=== PATIENT | female | born 1940 | race Caucasian/White ===

== ENCOUNTER 2017-06-04 22:07 | Inpatient (IN) ==
--- NOTE | 2017-06-04 22:25 | Emergency Department Note ---
Disposition Clinical Impression: Chest pain, Pneumonia Disposition: Transfer Short-Term Hosp Condition: Serious Referrals: Heaven Mendoza, [employer] [Primary Care Provider] - Time of Disposition: 01:34 General Adult HPI - General Stated complaint: Vomiting bladder infection Time Seen by Provider: 06/04/17 22:12 Nursing Notes Reviewed: Yes Vital Signs Reviewed: Yes - History of Present Illness HPI Narrative: Patient presents today with CC of: Chest pain, vomiting, mental status changes Patient describes issue began around several hours ago when the squad was called to the residence because of the patient having chest pain. This was at approximately 945 that they arrived. Complaining of chest pain at that time was diaphoretic and had several episodes of vomiting. He treated with DuoNeb 4 baby aspirin and Zofran medication. Is not able to give a cohesive history and just says that she feels bad. Patient has been feeling hot and cold. Also has had some cough but no sputum production. sHe apparently ate hamburger earlier this evening and according to family member started having vomiting and chest pain after that." Patient currently not having any chest pain or shortness of breath. - Related Data Home Medications Medication Instructions Recorded Confirmed Allopurinol [Zyloprim 100 MG] 100 mg PO BID 11/29/16 06/05/17 Aspirin [Lo-Dose Aspirin EC] 81 mg PO DAILY 11/29/16 06/05/17 Buspirone HCl [Buspar] 5 mg PO TID 11/29/16 06/05/17 Carvedilol [Coreg] 25 mg PO BID 11/29/16 06/05/17 Cholecalciferol (D-3) [Vitamin D] 1,000 unit PO BID 11/29/16 06/05/17 Furosemide [Lasix] 40 mg PO DAILY 11/29/16 06/05/17 GlipiZIDE [Glipizide Xl] 5 mg PO DAILY 11/29/16 06/05/17 Isosorbide MONOnitrate (24 HR) 60 mg PO DAILY 11/29/16 06/05/17 [Imdur] Nitroglycerin [Nitrostat] 0.4 mg SL DAILY PRN 11/29/16 06/05/17 Omeprazole [PriLOSEC] 20 mg PO DAILY 11/29/16 06/05/17 OxyCODONE Immed Rel [Roxicodone 10 10 mg PO TID 11/29/16 06/05/17 MG] cloNIDine HCl [CloNIDine HCl] 0.1 mg PO BID 11/29/16 06/05/17 Previous Rx's Medication Instructions Recorded Atorvastatin [Lipitor] 10 mg PO DAILY #30 tablet 12/01/16 Clopidogrel [Plavix] 75 mg PO DAILY #30 tablet 12/01/16 Allergies Allergy/AdvReac Type Severity Reaction Status Date / Time cephalexin [From Keflex] Allergy Rash Verified 06/04/17 23:41 Penicillins Allergy Rash Verified 06/04/17 23:41 ciprofloxacin [From Cipro] AdvReac See Verified 06/04/17 23:41 Comments NSAIDS (Non-Steroidal AdvReac See Verified 06/04/17 23:41 Anti-Inflamma Comments Zolpidem [From Ambien] AdvReac See Verified 06/04/17 23:41 Comments Nasal [place] Allergy Unknown See Uncoded 06/04/17 23:41 Comments Past Medical History - Past Medical History Medical history: Reports: cancer, CHF, COPD, coronary artery disease, diabetes, GERD, hyperlipidemia, hypertension, myocardial infarction, renal disease, TIA, other Surgical history: Reports: appendectomy, cancer surgery, cholecystectomy, hysterectomy, orthopedic, other Psychiatric history: Reports: anxiety, depression TENSILE TESTER history: Reports: no TENSILE TESTER history - Social History Smoking Status: Former smoker Smokeless Tobacco Status: No Alcohol use: Reports: none Drug use: Reports: none Physical Exam ROS: At least 10 systems reviewed with patient (she is a very poor historian) squad was only people available during time of exam to answer question provide history. I have reviewed initial and available nurse's notes for the patient. The patient 's medications, allergies, and medical history was reviewed. Family, Social & Surg histories were reviewed and are not relevant except as noted above in the history of present illness, or below in the respective specific section. I have reviewed and agree with all vital signs synchronously available in EMR at the time of this dictation. Times documented are the time of computer entry, are not necessarily the time the event occurred. Physical EXAM: General ~ Constitutional: Conscious & cooperative , generally healthy appearance Head: NCAT Eyes: Sclera white , conjunctiva clear , PERRL, non-icteric ENT : L Tympanic membrane normal color and landmarks R Tympanic membrane normal color and landmarks Canals are clear without significant drainage , no obstruction or vesicles , pinna and tragus non tender Nose with pink nasal mucosa, nares patent, non tender without bleeding Mouth - mucous membrane moist , pink , no lesions , no trismus Neck - no masses , supple , no cervical spinous process tenderness Pharynx - no exudate , no petechia or obvious lesions , no airway obstruction or stridor Hematologic ~ Lymphatic ~ Immunologic: Lymphadenopathy normal , no petechia , Skin color, nails and pulses unremarkable. Heart ~ Chest: Reg rate , nml Rhythm , nl S1/S2 , no MRG Lungs: Breath sounds equal , clear to auscultation bilaterally with diminished right side, no wheezing, no rales or rhonchi , no CVA tenderness Gastrointestinal ~ Abd: Soft & non tender , BS + in 4 quads , No HSM or masses , no peritoneal signs GenitoUrinary: Deferred Musculoskeletal ~ Back ~ Extremities: Warm and w/o clubbing , cyanosis , or edema. No point tenderness , good ROM of major joints Neurologic: Cranial nerves grossly intact, good muscle strength , attention good , cooperative , responds to questions but affect flat orineted to person and place Psychiatric: Calm , Insight and mood poor , Skin: No rashes , good skin turgor , cap refill 2-3 seconds , warm and dry Course Vital Signs Temperature 100.1 F H 06/04/17 22:42 Pulse Rate 80 06/04/17 22:42 Respiratory Rate 16 06/04/17 22:42 Blood Pressure 197/75 06/04/17 22:42 O2 Sat by Pulse Oximetry 84 06/04/17 22:42 Temperature 100.1 F H 06/04/17 22:42 Pulse Rate 73 06/05/17 00:50 Respiratory Rate 14 06/05/17 00:51 Blood Pressure 170/75 06/05/17 00:51 O2 Sat by Pulse Oximetry 95 06/05/17 00:51 Oxygen Delivery Oxygen Delivery Nasal Cannula Medical Decision Making - MDM Narrative Medical decision making narrative: MDM: History and physical exam is consistent with - atypical CP, pneumonia DDx included multiple etiologies for the symptoms such as - atypical CP, ACS, Pneumonia, pneumothorax, Gerd, AAA, PE XRAYS: Infiltrate right lung Critical Care: None Condition and evaluation here was discussed in detail. Labwork, and test results were reviewed with the patient chest x-ray shows infiltrate the patient does not meet sepsis criteria. I think she has a community acquired pneumonia but with complicating factor of diabetes, chest pain, altered mental status the patient should be admitted to a larger hospital. Patient was treated with antibiotics here in the emergency department and is agreeable to admission to the hospital here. I discussed case with Dr. Christopher patient will be admitted to the hospital here. She did improve significantly after being here in the department for several hours I suspect some of her altered mental status may be from some medication she is on. - Lab Data Result diagrams: 06/04/17 23:10 06/04/17 23:10 Lab Results 06/04/17 06/04/17 06/04/17 Range/Units 23:10 23:10 23:10 WBC 7.6 (4.3-11.1) K/mcL RBC 3.82 (3.82-4.97) M/mcL Hgb 12.4 (11.5-15.4) g/dL Hct 37.6 (35.3-44.9) % MCV 98.4 (83.0-100.0) fL MCH 32.5 (28.0-33.3) pg MCHC 33.0 (31.6-35.5) g/dL RDW 14.1 (11.5-14.5) % Plt Count 95 L (140-400) K/mcL MPV 12.2 (9.4-12.4) fL Immature Gran % 0.5 (0-4) % Seg Neutrophils % 87.8 % Lymphocytes % 6.2 % Monocytes % 4.9 % Eosinophils % 0.3 % Basophils % 0.3 % Neutrophils # 6.7 (1.6-8.9) K/mcL Lymphocytes # 0.5 L (0.6-4.6) K/mcL Monocytes # 0.4 (0.0-1.3) K/mcL Eosinophils # 0.0 (0.0-0.6) K/mcL Basophils # 0.0 (0.0-0.2) K/mcL PT (9.4-12.1) Seconds INR APTT 27.8 (26.0-36.0) Seconds ABG pH (7.32-7.45) pH Units ABG pCO2 (35-45) mmHg ABG pO2 (85-104) mmHg ABG HCO3 (21-27) mEq/L ABG Total CO2 (20-26) mEq/L ABG O2 Saturation (95-98) % ABG Base Excess (-2 to 3) mEq/L Sodium (136-145) mEq/L Potassium (3.5-5.1) mEq/L Chloride (98-107) mEq/L Carbon Dioxide (23-29) mEq/L BUN (8-23) mg/dL Creatinine (0.60-1.20) mg/dL Est GFR ( Amer) (> 60) Est GFR (Non-Af Amer) (> 60) BUN/Creatinine Ratio (6-26) Glucose (70-105) mg/dL Calculated Osmolality (280-300) Lactic Acid (0.5-2.2) mmol/L Calcium (8.6-10.3) mg/dL Total Bilirubin (0.3-1.0) mg/dL AST (13-39) Units/L ALT (7-52) Units/L Alkaline Phosphatase (34-104) Units/L Troponin I (< 0.04) ng/mL Serum Total Protein (6.4-8.9) g/dL Albumin (3.5-5.7) g/dL Globulin (2.4-3.5) g/dL Albumin/Globulin Ratio (1.1-2.2) Lipase (11-82) Units/L Urine Color (Yellow) Urine Clarity (Clear) Urine pH (5.0-8.0) pH Units Ur Specific [place] (1.010-1.025) Urine Protein (Neg-Trace) mg/dL Urine Glucose (UA) (Normal) mg/dL Urine Ketones (Negative) mg/dL Urine Blood (Negative) Urine Nitrite (Negative) Urine Bilirubin (Negative) Urine Urobilinogen (Normal) mg/dL Ur Leukocyte Esterase (Negative) Amorphous Sediment (Few) Ur Culture Indicated? (NO) Ethyl Alcohol < 10 (Less than 10) mg/dL 06/04/17 06/04/17 06/04/17 Range/Units 23:10 23:10 23:10 WBC (4.3-11.1) K/mcL RBC (3.82-4.97) M/mcL Hgb (11.5-15.4) g/dL Hct (35.3-44.9) % MCV (83.0-100.0) fL MCH (28.0-33.3) pg MCHC (31.6-35.5) g/dL RDW (11.5-14.5) % Plt Count (140-400) K/mcL MPV (9.4-12.4) fL Immature Gran % (0-4) % Seg Neutrophils % % Lymphocytes % % Monocytes % % Eosinophils % % Basophils % % Neutrophils # (1.6-8.9) K/mcL Lymphocytes # (0.6-4.6) K/mcL Monocytes # (0.0-1.3) K/mcL Eosinophils # (0.0-0.6) K/mcL Basophils # (0.0-0.2) K/mcL PT 14.2 H (9.4-12.1) Seconds INR 1.3 APTT (26.0-36.0) Seconds ABG pH (7.32-7.45) pH Units ABG pCO2 (35-45) mmHg ABG pO2 (85-104) mmHg ABG HCO3 (21-27) mEq/L ABG Total CO2 (20-26) mEq/L ABG O2 Saturation (95-98) % ABG Base Excess (-2 to 3) mEq/L Sodium (136-145) mEq/L Potassium (3.5-5.1) mEq/L Chloride (98-107) mEq/L Carbon Dioxide (23-29) mEq/L BUN (8-23) mg/dL Creatinine (0.60-1.20) mg/dL Est GFR ( Amer) (> 60) Est GFR (Non-Af Amer) (> 60) BUN/Creatinine Ratio (6-26) Glucose (70-105) mg/dL Calculated Osmolality (280-300) Lactic Acid 1.6 (0.5-2.2) mmol/L Calcium (8.6-10.3) mg/dL Total Bilirubin (0.3-1.0) mg/dL AST (13-39) Units/L ALT (7-52) Units/L Alkaline Phosphatase (34-104) Units/L Troponin I < 0.03 (< 0.04) ng/mL Serum Total Protein (6.4-8.9) g/dL Albumin (3.5-5.7) g/dL Globulin (2.4-3.5) g/dL Albumin/Globulin Ratio (1.1-2.2) Lipase 13 (11-82) Units/L Urine Color (Yellow) Urine Clarity (Clear) Urine pH (5.0-8.0) pH Units Ur Specific [place] (1.010-1.025) Urine Protein (Neg-Trace) mg/dL Urine Glucose (UA) (Normal) mg/dL Urine Ketones (Negative) mg/dL Urine Blood (Negative) Urine Nitrite (Negative) Urine Bilirubin (Negative) Urine Urobilinogen (Normal) mg/dL Ur Leukocyte Esterase (Negative) Amorphous Sediment (Few) Ur Culture Indicated? (NO) Ethyl Alcohol (Less than 10) mg/dL 06/04/17 06/04/17 06/04/17 Range/Units 23:10 23:24 23:55 WBC (4.3-11.1) K/mcL RBC (3.82-4.97) M/mcL Hgb (11.5-15.4) g/dL Hct (35.3-44.9) % MCV (83.0-100.0) fL MCH (28.0-33.3) pg MCHC (31.6-35.5) g/dL RDW (11.5-14.5) % Plt Count (140-400) K/mcL MPV (9.4-12.4) fL Immature Gran % (0-4) % Seg Neutrophils % % Lymphocytes % % Monocytes % % Eosinophils % % Basophils % % Neutrophils # (1.6-8.9) K/mcL Lymphocytes # (0.6-4.6) K/mcL Monocytes # (0.0-1.3) K/mcL Eosinophils # (0.0-0.6) K/mcL Basophils # (0.0-0.2) K/mcL PT (9.4-12.1) Seconds INR APTT (26.0-36.0) Seconds ABG pH 7.42 (7.32-7.45) pH Units ABG pCO2 47 H (35-45) mmHg ABG pO2 76 L (85-104) mmHg ABG HCO3 31 H (21-27) mEq/L ABG Total CO2 32 H (20-26) mEq/L ABG O2 Saturation 95 (95-98) % ABG Base Excess 5 H (-2 to 3) mEq/L Sodium 133 L (136-145) mEq/L Potassium 4.0 (3.5-5.1) mEq/L Chloride 94 L (98-107) mEq/L Carbon Dioxide 30 H (23-29) mEq/L BUN 25 H (8-23) mg/dL Creatinine 1.36 H (0.60-1.20) mg/dL Est GFR ( Amer) 46 L (> 60) Est GFR (Non-Af Amer) 38 L (> 60) BUN/Creatinine Ratio 18 (6-26) Glucose 201 H (70-105) mg/dL Calculated Osmolality 286 (280-300) Lactic Acid (0.5-2.2) mmol/L Calcium 9.4 (8.6-10.3) mg/dL Total Bilirubin 1.5 H (0.3-1.0) mg/dL AST 16 (13-39) Units/L ALT 11 (7-52) Units/L Alkaline Phosphatase 58 (34-104) Units/L Troponin I (< 0.04) ng/mL Serum Total Protein 6.4 (6.4-8.9) g/dL Albumin 4.0 (3.5-5.7) g/dL Globulin 2.4 (2.4-3.5) g/dL Albumin/Globulin Ratio 1.7 (1.1-2.2) Lipase (11-82) Units/L Urine Color Yellow (Yellow) Urine Clarity Slightly Cloudy A (Clear) Urine pH 5.5 (5.0-8.0) pH Units Ur Specific [place] >= 1.030 H (1.010-1.025) Urine Protein 100 H (Neg-Trace) mg/dL Urine Glucose (UA) Normal (Normal) mg/dL Urine Ketones Negative (Negative) mg/dL Urine Blood Negative (Negative) Urine Nitrite Negative (Negative) Urine Bilirubin Negative (Negative) Urine Urobilinogen Normal (Normal) mg/dL Ur Leukocyte Esterase Negative (Negative) Amorphous Sediment Few (Few) Ur Culture Indicated? NO (NO) Ethyl Alcohol (Less than 10) mg/dL - EKG Data EKG #1 EKG results narrative: EKG shows ectopic atrial rhythm. Ventricular rate 77. NC interval 149. QRS duration 105. QTc 439. T-wave flattening in lead aVL otherwise no acute injury pattern is noted.
[2017-06-04 23:20] LABS: Basophils % 0.3 %; Eosinophils % 0.3 %; Hematocrit 37.6 % (35.3-44.9); Hemoglobin 12.4 g/dL (11.5-15.4); Immature Granulocytes % 0.5 % (0-4); Lymphocytes # 0.5 K/mcL (0.6-4.6); Lymphocytes % 6.2 %; Mean Corpuscular Hemoglobin 32.5 pg (28.0-33.3); Mean Corpuscular Volume 98.4 fL (83.0-100.0); Mean Platelet Volume 12.2 fL (9.4-12.4); Monocytes # 0.4 K/mcL (0.0-1.3); Monocytes % 4.9 %; Neutrophils # 6.7 K/mcL (1.6-8.9); Red Blood Count 3.82 M/mcL (3.82-4.97); Red Cell Distribution Width 14.1 % (11.5-14.5); Segmented Neutrophils % 87.8 %
[2017-06-04 23:22] LABS: INR 1.3; Prothrombin Time 14.2 Seconds (9.4-12.1)
[2017-06-04 23:23] LABS: Platelet Count 95 K/mcL (140-400)
[2017-06-04 23:35] LABS: Troponin I < 0.03 ng/mL (< 0.04)
[2017-06-04 23:36] LABS: Albumin/Globulin Ratio 1.7 (1.1-2.2); Bilirubin,Total 1.5 mg/dL (0.3-1.0); Calcium 9.4 mg/dL (8.6-10.3); Globulin 2.4 g/dL (2.4-3.5); Lipase 13 Units/L (11-82); Total Protein 6.4 g/dL (6.4-8.9)
[2017-06-04 23:42] LABS: ABG Base Excess 5 mEq/L (-2 to 3); ABG HCO3 31 mEq/L (21-27); ABG Oxygen Saturation 95 % (95-98); ABG PCO2 47 mmHg (35-45); ABG PH 7.42 pH Units (7.32-7.45); ABG PO2 76 mmHg (85-104); ABG TCO2 32 mEq/L (20-26)
[2017-06-04 23:59] LABS: Bilirubin,Urine Negative (Negative); Blood,Urine Negative (Negative); Clarity,Urine Slightly Cloudy (Clear); Glucose,Urine (UA) Normal (Normal); Ketones,Urine Negative (Negative); Leukocyte Esterase,Urine Negative (Negative); Nitrite,Urine Negative (Negative); PH,Urine 5.5 pH Units (5.0-8.0); Protein,Urine 100 mg/dL (Neg-Trace); Specific Gravity,Urine >= 1.030 (1.010-1.025); Urobilinogen,Urine Normal (Normal)
[2017-06-05] LABS: Color,Urine Yellow (Yellow)
[2017-06-05 00:01] LABS: Amorphous Sediment,Urine Few (Few)
[2017-06-05] MEDS ORDERED: Ipratropium/Albuterol Neb 3 ML IH ONE (00:06)
[2017-06-05] MEDS ORDERED: Doxycycline 100 MG in 0.9 % Sodium Chloride Mini Bag 100 ML IVPB ONE (01:35)
[2017-06-05] MEDS ORDERED: Doxycycline 100 MG in 0.9 % Sodium Chloride Mini Bag 100 ML IVPB SCH (02:00)
[2017-06-05] MEDS ORDERED: Naloxone 0.4 MG/ML INJ IVP PRN (03:11)
[2017-06-05] MEDS ORDERED: Nitroglycerin 0.4 MG TAB.SUBL SL PRN (03:11)
[2017-06-05 04:08] LABS: Basophils % 0.4 %; Eosinophils % 0.6 %; Hematocrit 34.6 % (35.3-44.9); Hemoglobin 11.4 g/dL (11.5-15.4); Immature Granulocytes % 0.4 % (0-4); Lymphocytes # 0.7 K/mcL (0.6-4.6); Lymphocytes % 12.5 %; Mean Corpuscular HGB Conc 32.9 g/dL (31.6-35.5); Mean Corpuscular Hemoglobin 32.4 pg (28.0-33.3); Mean Corpuscular Volume 98.3 fL (83.0-100.0); Mean Platelet Volume 11.8 fL (9.4-12.4); Monocytes # 0.4 K/mcL (0.0-1.3); Monocytes % 7.2 %; Neutrophils # 4.2 K/mcL (1.6-8.9); Red Blood Count 3.52 M/mcL (3.82-4.97); Red Cell Distribution Width 14.1 % (11.5-14.5); Segmented Neutrophils % 78.9 %
[2017-06-05] MEDS: 0.9 % Sodium Chloride 1,000 ML IVC SCH ×2 (04:10→15:07)
[2017-06-05 04:11] LABS: Platelet Count 83 K/mcL (140-400)
[2017-06-05 04:20] LABS: Calcium 9.1 mg/dL (8.6-10.3); Potassium 3.9 mEq/L (3.5-5.1)
[2017-06-05] MEDS: *HR* GlipiZIDE XL (24 HR) 2.5 MG TABLET PO SCH (08:55)
[2017-06-05] MEDS: Furosemide 40 MG TABLET PO SCH (08:56)
[2017-06-05] MEDS: *HR* OxyCODONE Immed Rel 5 MG TABLET PO SCH ×3 (08:56→21:04)
[2017-06-05] MEDS: Aspirin Enteric Coated 81 MG Tablet PO SCH (08:56)
[2017-06-05] MEDS: cloNIDine HCl 0.1 MG TABLET PO SCH ×2 (08:56→21:04)
[2017-06-05] MEDS: Cholecalciferol (D-3) 1,000 UNIT TABLET PO SCH ×2 (08:56→21:04)
[2017-06-05] MEDS: Isosorbide MONOnitrate (24 HR) 60 MG TAB.ER.24H PO SCH (08:56)
--- NOTE | 2017-06-05 11:44 | Internal Med History&Physical ---
Date of Encounter: 06/06/17 Time of Encounter: 11:34 Assessment and Plan (1) Right lower lobe pneumonia Current visit: Yes Status: Acute Patient is admitted to the hospital with chest x-ray consistent with right lower lobe infiltrate/pneumonia, history of hypoxia and confusion. Due to her multiple allergies she is placed on doxycycline in the ER. She is on IV fluids. Clinically she is improving and symptomatically she is improving. For now she will remain on oxygen, increase her activities as tolerated, continue with the IV doxycycline. Qualifiers: Pneumonia type: due to unspecified organism Qualified Code(s): J18.1 - Lobar pneumonia, unspecified organism (2) Chronic kidney disease (CKD) Current visit: Yes Status: Chronic History of chronic kidney disease and followed by Dr. Bobo. Actually her creatinine has shown improvement over the past few months. I will have to verify her medications closely with the pharmacy as there is discrepancy in the records Qualifiers: Chronic kidney disease stage: stage 3 (moderate) Qualified Code(s): N18.3 - Chronic kidney disease, stage 3 (moderate) (3) COPD (chronic obstructive pulmonary disease) Current visit: Yes Status: Chronic History of previous tobacco use and quit over 20 years ago. Currently requiring oxygen. Does not use oxygen at home. I will need to verify her COPD medications with the pharmacy as there are discrepancies in the ER records. Qualifiers: COPD type: COPD with acute lower respiratory infection Qualified Code(s): J44.0 - Chronic obstructive pulmonary disease with acute lower respiratory infection (4) Diabetes mellitus Current visit: Yes Status: Chronic History of diabetes. Her last glycohemoglobin was 8% but it was many months ago. Her sugars are reasonably controlled while in the hospital. We will check a glycohemoglobin for long-term control. Continue her glipizide for now. Qualifiers: Diabetes mellitus type: type 2 Diabetes mellitus jail insulin use: without food supervisor use Diabetes mellitus complication status: with circulatory complication Diabetes mellitus complication detail: with other circulatory complications Qualified Code(s): E11.59 - Type 2 diabetes mellitus with other circulatory complications (5) Chronic low back pain Current visit: Yes Status: Chronic History chronic low back pain, history of lumbar stenosis and chronically takes oxycodone. No radicular symptoms or signs noted today. We will continue the same medication Qualifiers: Back pain laterality: bilateral Sciatica presence: without sciatica Qualified Code(s): M54.5 - Low back pain; G89.29 - Other chronic pain; G89.29 - Other chronic pain (6) Bilateral carotid artery disease Current visit: Yes Status: Acute Known carotid artery disease bilaterally, has bruits bilaterally, and is followed by . In the past she had some type of CVA or TIA but states she has no residual symptoms. She has dopplers on a regular basis. No acute focal neurological deficit physically. (7) Coronary artery disease Current visit: No Status: Chronic Known coronary artery disease and total of 4 stents placed. No angina currently. No signs of CHF. Serial troponins negative. We will continue her current medications. Qualifiers: Coronary Disease-Associated Artery/Lesion type: [place] artery [place] vs. transplanted heart: [place] heart Associated angina: without angina Qualified Code(s): I25.10 - Atherosclerotic heart disease of [place] coronary artery without angina pectoris (8) Essential hypertension Current visit: Yes Status: Chronic History of chronic hypertension. I will need to verify her medications at the pharmacy. Currently her blood pressure is well controlled. (9) Chest pain Current visit: Yes Status: Acute Reportedly had chest pain on admission, but serial troponins are negative. No angina currently. EKG is stable. No signs of an FL. Currently she is on a stationary equipment mechanic Qualifiers: Chest pain type: other chest pain Qualified Code(s): R07.89 - Other chest pain; R07.8 - Other chest pain (10) Thrombocytopenia Current visit: Yes Status: Acute History chronic thrombocytopenia over the past several months, today is worse. Doubt she has sepsis or DIC. Follow-up platelet count ordered for tomorrow. No signs of active bleeding. We will just follow at the present time (11) DVT prophylaxis Current visit: Yes Status: Acute Due to her multiple risk factors we will start Lovenox for DVT prophylaxis. May need to reconsider based on what her platelet count does. Internal Medicine - H&P: HPI Chief complaint: "Not sure why I am here, they said I had nausea" Admitted From: Emergency Dept Plans for Post Hospital Care: Home History of present illness: Ms. Rubin is a 76 year old female with known history of chronic kidney disease, type 2 diabetes, COPD, hypertension, coronary artery disease was admitted from the emergency room having presented there with chest pain, nausea and vomiting and confusion. Patient is not sure of the exact history prior to coming to the hospital. She said she was sick for 2 or 3 days with "nausea on my stomach", sweating and having chest pain. She lives with her son Ovidio. He is a one who called the [facility] [employer]. She does recall that someone from [facility] dropped off her medication reported that patient was "acting funny". She remembers riding in the squad and being in the ER remembering the ER physician. She does not know anything much about her diagnosis, what was done, etc. She knew that she had vomiting and was confused. Now she states that she is feeling better. She know she came in the hospital last night. She knows her birthday is [birth year] but it did take her long time to figure out what today's date is based on that. She knows the names of her specialists including Dr. Bobo, Dr. Simmons, Dr. Gomez. She previously was in hospice but she is not sure why, she says she got better and does not need them any longer. She said she was recently placed on Macrodantin and she thinks that may have made her ill. Currently she is denying any chest pain, palpitations, shortness of breath, GI or symptoms. The nurse reported that the patient became hypoxic walking about 10 feet to the bathroom with saturation down to 84% on room air. With oxygen at 2 L per nasal cannula she is back up to 93-97%. In the ER she was found to be hypoxic, confused and had infiltrate on chest x- ray in the right lower lobe area and presumed that she had pneumonia and required admission. Past Med Surg Social Fam HX - Past Medical History Medical history: arthritis, asthma, cancer (Uterine cancer), CHF, COPD, coronary artery disease (4 stents total placed/2011 and 2017), diabetes, GERD, hyperlipidemia, hypertension, myocardial infarction, renal disease, TIA (She said she had a stroke in 2003 but does not recall what problems she had nor any residual), other Psychiatric history: anxiety, depression - Past Surgical History Surgical History: appendectomy, cancer surgery (Hysterectomy for endometrial cancer), cholecystectomy, hysterectomy, orthopedic, other - Social History Smoking Status: Former smoker (Smoked one pack per day for 40 years and quit in 1994) Smokeless Tobacco Status: No Alcohol use: none Drug use: none - Family History Father Living Status: Hx Family Cardiac Disorders: Yes (Heart disease) Mother Living Status: Cause of : during childbirth Brother Hx Family Endocrine Disorder: Yes (Diabetes) Sister Hx Family Endocrine Disorder: Yes (Diabetes) Internal Medicine - H&P: Meds Allopurinol [Zyloprim 100 MG] 100 mg PO BID 11/29/16 [History] Aspirin [Lo-Dose Aspirin EC] 81 mg PO DAILY 11/29/16 [History] Carvedilol [Coreg] 25 mg PO BID 11/29/16 [History] Cholecalciferol (D-3) [Vitamin D] 1,000 unit PO BID 11/29/16 [History] GlipiZIDE [Glipizide Xl] 10 mg PO DAILY 11/29/16 [History] Isosorbide MONOnitrate (24 HR) [Imdur] 60 mg PO DAILY 11/29/16 [History] Nitroglycerin [Nitrostat] 0.4 mg SL DAILY PRN 11/29/16 [History] Omeprazole [PriLOSEC] 20 mg PO DAILY 11/29/16 [History] OxyCODONE Immed Rel [Roxicodone 10 MG] 10 mg PO TID 11/29/16 [History] cloNIDine HCl [CloNIDine HCl] 0.1 mg PO TID 11/29/16 [History] Atorvastatin [Lipitor] 40 mg PO HS 06/06/17 [History] Potassium Chloride [K-Tab ER] 20 meq PO DAILY 06/06/17 [History] hydroCHLOROthiazide [Hydrochlorothiazide] 25 mg PO DAILY 06/06/17 [History] 3 Allergy/AdvReac Type Severity Reaction Status Date / Time cephalexin [From Keflex] Allergy Rash Verified 06/04/17 23:41 Penicillins Allergy Rash Verified 06/04/17 23:41 ciprofloxacin [From Cipro] AdvReac See Verified 06/04/17 23:41 Comments NSAIDS (Non-Steroidal AdvReac See Verified 06/04/17 23:41 Anti-Inflamma Comments Zolpidem [From Ambien] AdvReac See Verified 06/04/17 23:41 Comments Nasal [place] Allergy Unknown See Uncoded 06/04/17 23:41 Comments - Constitutional Constitutional: anorexia, excessive sweating, no chills, no fever(s), no falls, no night sweats - EENT Eyes: no change in vision Ears: no ear discharge, no ear pain Nose, mouth and throat: no dry mouth, no neck pain, no sore throat - Breasts Breasts: no mass, no pain - Cardiovascular Cardiovascular ROS IM: chest pain, no dyspnea, no irregular heart rhythm, no palpitations, no syncope - Respiratory Respiratory: no cough, no dyspnea, no hemoptysis, no wheezing, no pain on inspiration - Gastrointestinal Gastrointestinal: nausea, vomiting, no change in bowel habits, no constipation, no diarrhea - Genitourinary Genitourinary: no dysuria, no hematuria, no urinary frequency Menstruation: post hysterectomy - Musculoskeletal Musculoskeletal ROS IM: no arthralgias, no joint swelling, no muscle weakness - Integumentary Integumentary IM: no rash, no jaundice - Neurological Neurological ROS: memory loss (She states she does not recall much about the past 2-3 days), no frequent falls, no headache(s), no weakness - Psychiatric Psychiatric: confusion (She states she does not recall much about the prior 2 or 3 days) - Endocrine Endocrine IM: excessive sweating (She says she has been sweating a lot today.), no fatigue - Hematologic/Lymphatic Hematologic/Lymphatic: no easy bruising, no lymphadenopathy - Allergic/Immunologic Allergic/Immunologic: no uticaria, no wheezing - Constitutional Vitals: Temp Pulse Resp BP Pulse Ox 98.3 F 61 14 172/65 99 06/05/17 07:11 06/05/17 07:11 06/05/17 07:11 06/05/17 07:11 06/05/17 07:11 General appearance: Present: A&O X 3, no acute distress, obese. Absent: answers questions appropriately Exam: Some things she is uncertain of. But for the most part socially and conversationally she is very clear and lucid today - Head Head exam: Present: atraumatic, normal inspection - Eye Eye exam: Present: EOMI, PERRL. Absent: scleral icterus Pupils: Present: PERRL - ENT ENT exam: Present: normal external ear exam, TM's normal bilaterally - Neck Neck exam general surgery: Absent: lymphadenopathy, tenderness, nuchal rigidity , thyromegaly Additional comments: Faint mid to low pitched bruits are noted bilaterally. No JVD - Respiratory Respiratory exam: Present: decreased breath sounds (Diminished breath sounds throughout. Particularly the right base. Faint atelectatic-type crackles at the bases). Absent: rales, respiratory distress, stridor, wheezes, tachypnea - Cardiovascular Cardiovascular exam: Present: RRR, +S1, +S2, systolic murmur (2/6 systolic murmur heard best at the left sternal border) - GI/Abdominal GI/Abdominal exam: Present: soft. Absent: hepatomegaly, tenderness Additional comments: Moderate obesity limits her examination - Extremities Exam Extremities exam: Absent: calf tenderness, pedal edema, tenderness Additional comments: Good dorsalis pedis pulses. No pedal edema - Back Exam Additional comments: Complained of lumbar and low back pain bilaterally but not impressive on examination - Neurological Exam Neurological exam: Present: alert, CN II-XII intact, oriented X3, no focal deficits. Absent: facial droop, speech deficit - Psychiatric Psychiatric exam: Present: normal affect, normal mood Internal Med - H&P Results - Labs CBC & Chem 7: 06/06/17 04:33 06/06/17 04:33 Labs: Short CBC 06/05/17 Range/Units 03:50 WBC 5.3 (4.3-11.1) K/mcL Hgb 11.4 L (11.5-15.4) g/dL Hct 34.6 L (35.3-44.9) % Plt Count 83 L (140-400) K/mcL Neutrophils # 4.2 (1.6-8.9) K/mcL BMP 06/05/17 03:50 Sodium 134 L Potassium 3.9 Chloride 97 L Carbon Dioxide 30 H BUN 26 H Creatinine 1.32 H Glucose 149 H Calcium 9.1 Cardiac Enzymes 06/05/17 06/05/17 Range/Units 03:50 09:14 Troponin I < 0.03 < 0.03 (< 0.04) ng/mL Labs have been reviewed. Serial troponins are negative. Minimal anemia. Thrombocytopenia is noted. She has had relatively low platelet counts for several months, but not quite this low. Mild hyponatremia. Creatinine elevated in history of chronic kidney disease. This is relatively stable for her. - EKG Data EKG comments: EKG shows normal sinus rhythm. Left anterior fascicular hemiblock. No ischemic changes noted. I do not readily have available old EKGs for comparison. This has not been read by traffic inspector yet - Impressions ITS Impressions Chest X-Ray 06/05/17 04:00 IMPRESSION: 1. Decreased right basilar airspace opacity, possibly improvement in atelectasis, pneumonia, or aspiration. 2. Minimal left basilar atelectasis. 3. Pulmonary vascular congestion and/or chronic interstitial change. D/ / Sujit Glover MD / Sujit Glover MD Interpreting Provider: Sujit Glover MD - VTE Documentation of Mechanical Device: Intermittent pneumatic compression device
[2017-06-05] MEDS: Doxycycline 100 MG in 0.9 % Sodium Chloride Mini Bag 100 ML IVPB SCH (17:22)
[2017-06-06 04:41] LABS: Basophils % 0.4 %; Eosinophils # 0.2 K/mcL (0.0-0.6); Eosinophils % 3.7 %; Hematocrit 32.7 % (35.3-44.9); Hemoglobin 10.6 g/dL (11.5-15.4); Immature Granulocytes % 0.2 % (0-4); Lymphocytes # 1.3 K/mcL (0.6-4.6); Lymphocytes % 26.6 %; Mean Corpuscular HGB Conc 32.4 g/dL (31.6-35.5); Mean Corpuscular Hemoglobin 32.3 pg (28.0-33.3); Mean Corpuscular Volume 99.7 fL (83.0-100.0); Mean Platelet Volume 11.8 fL (9.4-12.4); Monocytes # 0.6 K/mcL (0.0-1.3); Monocytes % 12.9 %; Neutrophils # 2.7 K/mcL (1.6-8.9); Platelet Count 81 K/mcL (140-400); Red Blood Count 3.28 M/mcL (3.82-4.97); Red Cell Distribution Width 14.5 % (11.5-14.5); Segmented Neutrophils % 56.2 %
[2017-06-06 04:59] LABS: Calcium 8.6 mg/dL (8.6-10.3); Potassium 3.5 mEq/L (3.5-5.1)
[2017-06-06] MEDS: Doxycycline 100 MG in 0.9 % Sodium Chloride Mini Bag 100 ML IVPB SCH ×2 (05:05→18:24)
[2017-06-06] MEDS: cloNIDine HCl 0.1 MG TABLET PO SCH ×2 (05:08→20:53)
[2017-06-06] MEDS: Isosorbide MONOnitrate (24 HR) 60 MG TAB.ER.24H PO SCH (05:08)
[2017-06-06] MEDS ORDERED: *HR* Enoxaparin 40 MG/0.4 ML SYRINGE SQ SCH (06:00)
--- NOTE | 2017-06-06 07:48 | Internal Med Progress Note ---
Date of Encounter: 06/06/17 Time of Encounter: 07:43 - Assessment and plan (1) Right lower lobe pneumonia Current Visit: Yes Status: Acute Assessment and plan: Right lower lobe pneumonia. Currently taking doxycycline intravenously. She is now alert and appropriate and symptomatically improving. Today she has very subtle but present expiratory wheezing. We will add nebulizer treatment. We will verify her home medications that she states she has a nebulizer at home as well. Qualifiers: Pneumonia type: due to unspecified organism Qualified Code(s): J18.1 - Lobar pneumonia, unspecified organism (2) Chronic kidney disease (CKD) Current Visit: Yes Status: Chronic Assessment and plan: History chronic kidney disease, creatinine a bit worse since admission but at her baseline as an outpatient. We will monitor. Qualifiers: Chronic kidney disease stage: stage 3 (moderate) Qualified Code(s): N18.3 - Chronic kidney disease, stage 3 (moderate) (3) COPD (chronic obstructive pulmonary disease) Current Visit: Yes Status: Chronic Assessment and plan: History of COPD. Today she has some wheezing. We will add nebulizer treatments. Will verify her home meds. Qualifiers: COPD type: COPD with acute lower respiratory infection Qualified Code(s): J44.0 - Chronic obstructive pulmonary disease with acute lower respiratory infection (4) Diabetes mellitus Current Visit: Yes Status: Chronic Assessment and plan: Has a history of diabetes mellitus. Her glycohemoglobin is pending to check her long-range control. Sugars are reasonably controlled during this hospitalization. Qualifiers: Diabetes mellitus type: type 2 Diabetes mellitus half-way insulin use: without termite control technician use Diabetes mellitus complication status: with circulatory complication Diabetes mellitus complication detail: with other circulatory complications Qualified Code(s): E11.59 - Type 2 diabetes mellitus with other circulatory complications (5) Chronic low back pain Current Visit: Yes Status: Chronic Qualifiers: Back pain laterality: bilateral Sciatica presence: without sciatica Qualified Code(s): M54.5 - Low back pain; G89.29 - Other chronic pain; G89.29 - Other chronic pain (6) Bilateral carotid artery disease Current Visit: Yes Status: Acute (7) Coronary artery disease Current Visit: No Status: Chronic Assessment and plan: no signs of angina or CHF. Qualifiers: Coronary Disease-Associated Artery/Lesion type: [place] artery [place] vs. transplanted heart: [place] heart Associated angina: without angina Qualified Code(s): I25.10 - Atherosclerotic heart disease of [place] coronary artery without angina pectoris (8) Essential hypertension Current Visit: Yes Status: Chronic Assessment and plan: Through the night her blood pressure escalated to 190s systolic. It is better currently. We will verify her home medication list with the pharmacy and adjust accordingly (9) Chest pain Current Visit: Yes Status: Acute Assessment and plan: No angina. Serial troponins are negative. She can come off the monitor. Qualifiers: Chest pain type: other chest pain Qualified Code(s): R07.89 - Other chest pain; R07.8 - Other chest pain (10) Thrombocytopenia Current Visit: Yes Status: Acute Assessment and plan: Her thrombocytopenia is a bit worse today. She has had relatively low platelets prior to hospitalization. Lovenox was started yesterday, it will be discontinued. We will continue to monitor. (11) DVT prophylaxis Current Visit: Yes Status: Acute Assessment and plan: Her Lovenox will be discontinued because of low platelet count. It was low during admission. She will be on early ambulation, elastic stockings, and pneumatic compression devices - Subjective Interval history: Patient states that she is feeling better. No more confusion. She still is requiring oxygen. She denies any cardiac symptoms. Denies any dyspnea or significant cough. She denies any GI or symptoms. She feels stronger. Nurses report that she is getting more independent in the room. Still requires oxygen. Through the night her blood pressure elevated to the 190s systolic and her morning medications were given earlier than scheduled and blood pressure now and the 170s systolic. Patient does not know her medications. There is a discrepancy between home medication list and hospital list. We will check with pharmacy to verify her usual meds and adjust accordingly - Constitutional Vitals: Temp Pulse Resp BP Pulse Ox 98.1 F 59 16 179/54 96 06/06/17 07:27 06/06/17 07:27 06/06/17 07:27 06/06/17 07:27 06/06/17 07:27 General appearance: Present: A&O X 3, no acute distress, obese, answers questions appropriately - Respiratory Additional comments: Decreased breath sounds throughout, markedly diminished breath sounds in the right base. End expiratory wheeze is heard particularly anteriorly - Cardiovascular Cardiovascular exam: Present: RRR, +S1, +S2, systolic murmur (26 systolic murmur) - GI/Abdominal GI/Abdominal exam: Present: soft. Absent: mass, tenderness - Extremities Exam Extremities exam: Absent: calf tenderness, pedal edema, tenderness - Neurological Exam Neurological exam: Present: alert, oriented X3 Internal Medicine: Result - Labs CBC & Chem 7: 06/06/17 04:33 06/06/17 04:33 Labs: Short CBC 06/06/17 Range/Units 04:33 WBC 4.8 (4.3-11.1) K/mcL Hgb 10.6 L (11.5-15.4) g/dL Hct 32.7 L (35.3-44.9) % Plt Count 81 L (140-400) K/mcL Neutrophils # 2.7 (1.6-8.9) K/mcL BMP 06/06/17 04:33 Sodium 139 Potassium 3.5 Chloride 102 Carbon Dioxide 28 BUN 29 H Creatinine 1.44 H Glucose 114 H Calcium 8.6 Cardiac Enzymes 06/05/17 Range/Units 15:15 Troponin I < 0.03 (< 0.04) ng/mL Hemoglobin is a bit lower after hydration. Creatinine is a bit higher now but she chronically has chronic kidney disease. Platelet count is now down to 81, 000. She has had a low platelet count as an outpatient, but not this low. Her Lovenox will be discontinued - ABG Interpretation ABG results: ABG ABG pH 7.42 pH Units (7.32-7.45) 06/04/17 23:24 ABG pCO2 47 mmHg (35-45) H 06/04/17 23:24 ABG pO2 76 mmHg (85-104) L 06/04/17 23:24 ABG O2 Saturation 95 % (95-98) 06/04/17 23:24 PT/INR, D-dimer PT 14.2 Seconds (9.4-12.1) H 06/04/17 23:10 - VTE Documentation of Mechanical Device: Intermittent pneumatic compression device Consult Discharge Plan - Plan Referrals: Heaven Mendoza, CONSULTING SYSTEMS ENGINEER [Primary Care Provider] -
[2017-06-06] MEDS: *HR* OxyCODONE Immed Rel 5 MG TABLET PO SCH ×3 (09:00→20:53)
[2017-06-06] MEDS: *HR* GlipiZIDE XL (24 HR) 2.5 MG TABLET PO SCH (09:00)
[2017-06-06] MEDS: Cholecalciferol (D-3) 1,000 UNIT TABLET PO SCH ×2 (09:00→20:52)
[2017-06-06] MEDS: Aspirin Enteric Coated 81 MG Tablet PO SCH (09:00)
[2017-06-06] MEDS: Furosemide 40 MG TABLET PO SCH (09:01)
[2017-06-06] MEDS: Ipratropium/Albuterol Neb 3 ML IH PRN (09:01)
[2017-06-06 11:17] LABS: Estimated Average Glucose 154 mg/dl
[2017-06-06] MEDS: hydroCHLOROthiazide 25 MG TABLET PO SCH (13:31)
[2017-06-06] MEDS ORDERED: cloNIDine HCl 0.1 MG TABLET PO SCH (15:00)
[2017-06-06] MEDS ORDERED: cloNIDine HCl 0.1 MG TABLET PO ONE (15:27)
[2017-06-07] MEDS: cloNIDine HCl 0.1 MG TABLET PO SCH ×3 (04:54→21:27)
[2017-06-07] MEDS: Isosorbide MONOnitrate (24 HR) 60 MG TAB.ER.24H PO SCH (04:55)
[2017-06-07] MEDS: hydroCHLOROthiazide 25 MG TABLET PO SCH (04:55)
[2017-06-07] MEDS: Doxycycline 100 MG in 0.9 % Sodium Chloride Mini Bag 100 ML IVPB SCH ×2 (04:56→20:05)
[2017-06-07 05:49] LABS: Basophils % 0.5 %; Eosinophils # 0.3 K/mcL (0.0-0.6); Eosinophils % 4.4 %; Hematocrit 33.2 % (35.3-44.9); Hemoglobin 10.8 g/dL (11.5-15.4); Immature Granulocytes % 0.5 % (0-4); Lymphocytes # 1.3 K/mcL (0.6-4.6); Lymphocytes % 21.2 %; Mean Corpuscular HGB Conc 32.5 g/dL (31.6-35.5); Mean Corpuscular Hemoglobin 32.1 pg (28.0-33.3); Mean Corpuscular Volume 98.8 fL (83.0-100.0); Mean Platelet Volume 12.1 fL (9.4-12.4); Monocytes # 0.6 K/mcL (0.0-1.3); Monocytes % 9.5 %; Neutrophils # 3.9 K/mcL (1.6-8.9); Red Blood Count 3.36 M/mcL (3.82-4.97); Red Cell Distribution Width 14.5 % (11.5-14.5); Segmented Neutrophils % 63.9 %
[2017-06-07 05:59] LABS: Platelet Count 90 K/mcL (140-400)
[2017-06-07 06:03] LABS: Calcium 9.5 mg/dL (8.6-10.3); Potassium 3.5 mEq/L (3.5-5.1)
[2017-06-07] MEDS: *HR* GlipiZIDE XL (24 HR) 10 MG TABLET PO SCH (08:59)
[2017-06-07] MEDS: Aspirin Enteric Coated 81 MG Tablet PO SCH (08:59)
[2017-06-07] MEDS: Cholecalciferol (D-3) 1,000 UNIT TABLET PO SCH ×2 (08:59→21:27)
[2017-06-07] MEDS: *HR* OxyCODONE Immed Rel 5 MG TABLET PO SCH ×3 (09:02→21:27)
--- NOTE | 2017-06-07 13:35 | Electrocardiograph Report ---
[place] [id number] Test Date: 2017-06-04 Pat Name: Candelaria Rubin Department: 2000 Room: 112 Gender: F Sous Chef Kitchen Manager: SIVA : 1940 Requested By: Sean Robins Order Number: [id number] Reading MD: Cleopatra Berrios Measurements Intervals [place] Rate: 77 P: -74 [place]: 149 QRS: -51 QRSD: 105 T: 72 QT: 408 QTc: 439 Interpretive Statements NORMAL SINUS RHYTHM LEFT ANTERIOR FASCICULAR BLOCK Electronically Signed On 06-07-2017 13:33:40 EDT by Cleopatra Berrios
--- NOTE | 2017-06-07 15:04 | Internal Med Progress Note ---
Date of Encounter: 06/07/17 Time of Encounter: 15:04 - Assessment and plan (1) DVT prophylaxis Current Visit: Yes Status: Acute Assessment and plan: scd due to thrombocytopenia (2) Right lower lobe pneumonia Current Visit: Yes Status: Acute Assessment and plan: continue the iv doxycycline. Qualifiers: Pneumonia type: due to unspecified organism Qualified Code(s): J18.1 - Lobar pneumonia, unspecified organism (3) Thrombocytopenia Current Visit: Yes Status: Acute Assessment and plan: stable will cont to follow (4) COPD (chronic obstructive pulmonary disease) Current Visit: Yes Status: Chronic Assessment and plan: using nebs will add solumedrol since she is wheeze more and feels it more Qualifiers: COPD type: COPD with acute lower respiratory infection Qualified Code(s): J44.0 - Chronic obstructive pulmonary disease with acute lower respiratory infection (5) Chronic kidney disease (CKD) Current Visit: Yes Status: Chronic Assessment and plan: creat increased a little more today will cont to follow Qualifiers: Chronic kidney disease stage: stage 3 (moderate) Qualified Code(s): N18.3 - Chronic kidney disease, stage 3 (moderate) (6) Diabetes mellitus Current Visit: Yes Status: Chronic Assessment and plan: will likely get higher with the solumedrol. ssi Qualifiers: Diabetes mellitus type: type 2 Diabetes mellitus extermination inspector insulin use: without extermination inspector use Diabetes mellitus complication status: with circulatory complication Diabetes mellitus complication detail: with other circulatory complications Qualified Code(s): E11.59 - Type 2 diabetes mellitus with other circulatory complications (7) Essential hypertension Current Visit: Yes Status: Chronic Assessment and plan: it is not controlled. she did not tolerate lisinopril in the past. will add losartan - Subjective Interval history: she is feeling tired worn out no energy. she is wheezing and has coughing. had nausea this am no emesis. has been dizzy. some sob. she has a headache. ate breakfast this am - Constitutional Vitals: Temp Pulse Resp BP Pulse Ox 98.6 F 61 16 174/65 98 06/07/17 11:00 06/07/17 11:00 06/07/17 14:07 06/07/17 11:00 06/07/17 14:07 General appearance: Present: A&O X 3, no acute distress, obese, answers questions appropriately - Head Head exam: Present: atraumatic, normocephalic - Neck Neck exam general surgery: Present: normal inspection, trachea midline. Absent : lymphadenopathy - Respiratory Respiratory exam: Present: decreased breath sounds, prolonged expiratory phase, wheezes - Cardiovascular Cardiovascular exam: Present: RRR, +S1, +S2. Absent: systolic murmur - GI/Abdominal GI/Abdominal exam: Present: normal bowel sounds, soft. Absent: guarding, tenderness, no peritoneal signs - Extremities Exam Extremities exam: Present: warm. Absent: cyanotic, pedal edema Internal Medicine: Result - Labs CBC & Chem 7: 06/07/17 05:35 06/07/17 05:35 Labs: Short CBC 06/07/17 Range/Units 05:35 WBC 6.1 (4.3-11.1) K/mcL Hgb 10.8 L (11.5-15.4) g/dL Hct 33.2 L (35.3-44.9) % Plt Count 90 L (140-400) K/mcL Neutrophils # 3.9 (1.6-8.9) K/mcL BMP 06/07/17 05:35 Sodium 140 Potassium 3.5 Chloride 98 Carbon Dioxide 33 H BUN 31 H Creatinine 1.50 H Glucose 128 H Calcium 9.5 - ABG Interpretation ABG results: ABG ABG pH 7.42 pH Units (7.32-7.45) 06/04/17 23:24 ABG pCO2 47 mmHg (35-45) H 06/04/17 23:24 ABG pO2 76 mmHg (85-104) L 06/04/17 23:24 ABG O2 Saturation 95 % (95-98) 06/04/17 23:24 PT/INR, D-dimer PT 14.2 Seconds (9.4-12.1) H 06/04/17 23:10 - VTE Documentation of Mechanical Device: Intermittent pneumatic compression device Consult Discharge Plan - Plan Referrals: Heaven Mendoza, TITLE I PARAPROFESSIONAL [Primary Care Provider] -
[2017-06-07] MEDS: Ipratropium/Albuterol Neb 3 ML IH PRN (15:38)
[2017-06-07] MEDS ORDERED: methylPREDNISolone 125 MG/2 ML VIAL IVP SCH (18:00)
[2017-06-07] MEDS: methylPREDNISolone 125 MG/2 ML VIAL IVP SCH ×2 (19:49→20:06)
[2017-06-08] MEDS: cloNIDine HCl 0.1 MG TABLET PO SCH ×3 (04:06→21:42)
[2017-06-08] MEDS: Isosorbide MONOnitrate (24 HR) 60 MG TAB.ER.24H PO SCH (04:07)
[2017-06-08] MEDS: Ipratropium/Albuterol Neb 3 ML IH PRN (04:08)
[2017-06-08] MEDS: methylPREDNISolone 125 MG/2 ML VIAL IVP SCH ×2 (04:43→18:13)
[2017-06-08] MEDS: Doxycycline 100 MG in 0.9 % Sodium Chloride Mini Bag 100 ML IVPB SCH ×2 (04:45→18:13)
[2017-06-08 05:30] LABS: Hematocrit 33.9 % (35.3-44.9); Hemoglobin 11.3 g/dL (11.5-15.4); Immature Granulocytes % 0.4 % (0-4); Lymphocytes # 0.8 K/mcL (0.6-4.6); Lymphocytes % 15.7 %; Mean Corpuscular HGB Conc 33.3 g/dL (31.6-35.5); Mean Corpuscular Hemoglobin 32.2 pg (28.0-33.3); Mean Corpuscular Volume 96.6 fL (83.0-100.0); Mean Platelet Volume 12.3 fL (9.4-12.4); Monocytes # 0.1 K/mcL (0.0-1.3); Monocytes % 1.6 %; Red Blood Count 3.51 M/mcL (3.82-4.97); Segmented Neutrophils % 82.3 %
[2017-06-08 05:39] LABS: Platelet Count 99 K/mcL (140-400)
[2017-06-08 05:41] LABS: Calcium 9.5 mg/dL (8.6-10.3); Potassium 3.8 mEq/L (3.5-5.1)
[2017-06-08] MEDS: *HR* OxyCODONE Immed Rel 5 MG TABLET PO SCH ×2 (08:19→18:12)
[2017-06-08] MEDS: Cholecalciferol (D-3) 1,000 UNIT TABLET PO SCH ×2 (08:19→21:56)
[2017-06-08] MEDS: *HR* GlipiZIDE XL (24 HR) 10 MG TABLET PO SCH (08:19)
[2017-06-08] MEDS: hydroCHLOROthiazide 25 MG TABLET PO SCH (08:19)
[2017-06-08] MEDS: Aspirin Enteric Coated 81 MG Tablet PO SCH (08:19)
[2017-06-08] MEDS ORDERED: D5% in Water 1,000 ML IVC PRN (10:24)
[2017-06-08] MEDS ORDERED: *HR* Dextrose 50 % in Water (Syg) 50 ML SYRINGE IVP PRN (10:24)
[2017-06-08] MEDS ORDERED: Dextrose Gel 15 GM PO PRN ×2 (10:24)
--- NOTE | 2017-06-08 10:26 | Internal Med Progress Note ---
Date of Encounter: 06/08/17 Time of Encounter: 10:22 - Assessment and plan (1) Right lower lobe pneumonia Current Visit: Yes Status: Acute Assessment and plan: continue the iv doxycycline. duonebs Qualifiers: Pneumonia type: due to unspecified organism Qualified Code(s): J18.1 - Lobar pneumonia, unspecified organism (2) DVT prophylaxis Current Visit: Yes Status: Acute Assessment and plan: scd due to thrombocytopenia (3) Thrombocytopenia Current Visit: Yes Status: Acute Assessment and plan: stable will cont to follow (4) COPD (chronic obstructive pulmonary disease) Current Visit: Yes Status: Chronic Assessment and plan: using nebs added solumedrol Qualifiers: COPD type: COPD with acute lower respiratory infection Qualified Code(s): J44.0 - Chronic obstructive pulmonary disease with acute lower respiratory infection (5) Chronic kidney disease (CKD) Current Visit: Yes Status: Chronic Assessment and plan: creat improved today will cont to follow Qualifiers: Chronic kidney disease stage: stage 3 (moderate) Qualified Code(s): N18.3 - Chronic kidney disease, stage 3 (moderate) (6) Diabetes mellitus Current Visit: Yes Status: Chronic Assessment and plan: will likely get higher with the solumedrol. ssi Qualifiers: Diabetes mellitus type: type 2 Diabetes mellitus senior living insulin use: without senior living use Diabetes mellitus complication status: with circulatory complication Diabetes mellitus complication detail: with other circulatory complications Qualified Code(s): E11.59 - Type 2 diabetes mellitus with other circulatory complications (7) Essential hypertension Current Visit: Yes Status: Chronic Assessment and plan: it is not controlled. she did not tolerate lisinopril in the past. will add losartan. increased the dose today - Subjective Interval history: feels a little better but still really tired had nausea this am no emesis. has been dizzy. some sob. she has a headache. ate breakfast this am - Constitutional Vitals: Temp Pulse Resp BP Pulse Ox 97.6 F 54 16 185/63 95 06/08/17 06:58 06/08/17 06:58 06/08/17 06:58 06/08/17 06:58 06/08/17 06:58 General appearance: Present: A&O X 3, no acute distress, obese, answers questions appropriately - Head Head exam: Present: atraumatic, normocephalic - Neck Neck exam general surgery: Present: supple, trachea midline. Absent: lymphadenopathy - Respiratory Respiratory exam: Present: decreased breath sounds, prolonged expiratory phase, wheezes (but improved) - Cardiovascular Cardiovascular exam: Present: RRR, +S1. Absent: systolic murmur - GI/Abdominal GI/Abdominal exam: Present: normal bowel sounds, soft, no peritoneal signs. Absent: mass, tenderness - Extremities Exam Extremities exam: Present: warm. Absent: pedal edema - Skin Skin exam: Present: dry, warm Internal Medicine: Result - Labs CBC & Chem 7: 06/08/17 04:50 06/08/17 04:50 Labs: Short CBC 06/08/17 Range/Units 04:50 WBC 4.9 (4.3-11.1) K/mcL Hgb 11.3 L (11.5-15.4) g/dL Hct 33.9 L (35.3-44.9) % Plt Count 99 L (140-400) K/mcL Neutrophils # 4.0 (1.6-8.9) K/mcL BMP 06/08/17 04:50 Sodium 138 Potassium 3.8 Chloride 98 Carbon Dioxide 33 H BUN 33 H Creatinine 1.28 H Glucose 261 H Calcium 9.5 - ABG Interpretation ABG results: ABG ABG pH 7.42 pH Units (7.32-7.45) 06/04/17 23:24 ABG pCO2 47 mmHg (35-45) H 06/04/17 23:24 ABG pO2 76 mmHg (85-104) L 06/04/17 23:24 ABG O2 Saturation 95 % (95-98) 06/04/17 23:24 PT/INR, D-dimer PT 14.2 Seconds (9.4-12.1) H 06/04/17 23:10 - VTE Documentation of Mechanical Device: Graduated compression elastic hosiery Consult Discharge Plan - Plan Referrals: Heaven Mendoza, MARKET RISK SPECIALIST [Primary Care Provider] -
[2017-06-08] MEDS: Insulin LISPRO 300 UNITS/3 ML VIAL SQ SCH ×2 (12:03→18:14)
[2017-06-08] MEDS ORDERED: cloNIDine HCl 0.1 MG TABLET PO ONE (21:37)
[2017-06-09] MEDS ORDERED: cloNIDine HCl 0.1 MG TABLET PO ONE (00:23)
[2017-06-09] MEDS: *HR* OxyCODONE Immed Rel 5 MG TABLET PO SCH ×4 (00:58→21:17)
[2017-06-09] MEDS: cloNIDine HCl 0.1 MG TABLET PO SCH ×3 (06:21→21:17)
[2017-06-09] MEDS: methylPREDNISolone 125 MG/2 ML VIAL IVP SCH ×2 (06:21→18:08)
[2017-06-09] MEDS: hydroCHLOROthiazide 25 MG TABLET PO SCH (06:23)
[2017-06-09] MEDS: Isosorbide MONOnitrate (24 HR) 60 MG TAB.ER.24H PO SCH (06:23)
[2017-06-09] MEDS: Doxycycline 100 MG in 0.9 % Sodium Chloride Mini Bag 100 ML IVPB SCH ×2 (06:23→18:07)
--- NOTE | 2017-06-09 07:18 | Internal Med Progress Note ---
Date of Encounter: 06/09/17 Time of Encounter: 06:52 - Assessment and plan (1) Right lower lobe pneumonia Current Visit: Yes Status: Acute Assessment and plan: Right lower lobe pneumonia clinically is clearing. Continues with IVs doxycycline. Still having some dyspnea but improving. Continue the same for now. She is fatigued and we will transfer her to swing bed. Qualifiers: Pneumonia type: due to unspecified organism Qualified Code(s): J18.1 - Lobar pneumonia, unspecified organism (2) Chronic kidney disease (CKD) Current Visit: Yes Status: Chronic Assessment and plan: Chronic kidney disease with acute kidney injury, now improved. Qualifiers: Chronic kidney disease stage: stage 3 (moderate) Qualified Code(s): N18.3 - Chronic kidney disease, stage 3 (moderate) (3) COPD (chronic obstructive pulmonary disease) Current Visit: Yes Status: Chronic Assessment and plan: Her COPD worsened a bit and steroids and nebulizer treatments were started. Now she sounds better. Still gets dyspneic going to the bathroom. Qualifiers: COPD type: COPD with acute lower respiratory infection Qualified Code(s): J44.0 - Chronic obstructive pulmonary disease with acute lower respiratory infection (4) Diabetes mellitus Current Visit: Yes Status: Chronic Assessment and plan: Chronic diabetes. Sugars are elevated due to steroids. Continue current treatment. Qualifiers: Diabetes mellitus type: type 2 Diabetes mellitus remote computer terminal operator insulin use: without remote computer terminal operator use Diabetes mellitus complication status: with circulatory complication Diabetes mellitus complication detail: with other circulatory complications Qualified Code(s): E11.59 - Type 2 diabetes mellitus with other circulatory complications (5) Chronic low back pain Current Visit: Yes Status: Chronic Qualifiers: Back pain laterality: bilateral Sciatica presence: without sciatica Qualified Code(s): M54.5 - Low back pain; G89.29 - Other chronic pain; G89.29 - Other chronic pain (6) Bilateral carotid artery disease Current Visit: Yes Status: Acute (7) Coronary artery disease Current Visit: No Status: Chronic Assessment and plan: No angina or CHF. We can discontinue the monitor. Qualifiers: Coronary Disease-Associated Artery/Lesion type: [place] artery [place] vs. transplanted heart: [place] heart Associated angina: without angina Qualified Code(s): I25.10 - Atherosclerotic heart disease of [place] coronary artery without angina pectoris (8) Essential hypertension Current Visit: Yes Status: Chronic Assessment and plan: Blood pressure has been elevated in the past few evenings. Her pressures are in to the 200 systolic range. No IRONING MACHINE OPERATOR, cardiac or neurological changes. Clonidine is continued, losartan was increased, hydrochlorothiazide was restarted. We will continue to monitor for now as these are hopefully going to take effect. (9) Chest pain Current Visit: Yes Status: Acute Assessment and plan: No cardiac type chest pain now. Monitor will be discontinued Qualifiers: Chest pain type: other chest pain Qualified Code(s): R07.89 - Other chest pain; R07.8 - Other chest pain (10) Thrombocytopenia Current Visit: Yes Status: Acute Assessment and plan: Thrombocytopenia is improving. Lovenox was discontinued. The platelets were dropping before Lovenox was even started though. (11) DVT prophylaxis Current Visit: Yes Status: Acute Assessment and plan: Compression hose and rheumatic boots. - Subjective Interval history: Patient feels that she is doing much better from a lung point of view. She denies any exertional type chest pain or palpitations. She is not having much sputum production. She has occasional wheezing. Her biggest complaint is that she is having constipation. At home she takes bisacodyl and she has a bottle at the bedside. She does not think she has had a bowel movement since admission. She states she still gets dyspneic when going to and from the bathroom, but markedly improved from last week. - Constitutional Vitals: Temp Pulse Resp BP Pulse Ox 98.0 F 62 17 204/70 97 06/09/17 04:00 06/09/17 04:00 06/09/17 04:00 06/09/17 05:54 06/09/17 04:00 General appearance: Present: A&O X 3, no acute distress, obese, answers questions appropriately - Respiratory Additional comments: Diminished breath sounds but clear. No wheezing or crackles or dyspnea she has a dry cough. - Cardiovascular Cardiovascular exam: Present: RRR, +S1, +S2, systolic murmur (1 to 2/6 systolic murmur) - GI/Abdominal GI/Abdominal exam: Present: soft. Absent: tenderness - Extremities Exam Extremities exam: Absent: calf tenderness, pedal edema, tenderness Internal Medicine: Result - Labs CBC & Chem 7: 06/08/17 04:50 06/08/17 04:50 Labs: Laboratory from yesterday shows renal function to be improved. Platelet count is normalizing Hemoglobin is stable. Sugars are elevated particularly since starting the steroids - ABG Interpretation ABG results: ABG ABG pH 7.42 pH Units (7.32-7.45) 06/04/17 23:24 ABG pCO2 47 mmHg (35-45) H 06/04/17 23:24 ABG pO2 76 mmHg (85-104) L 06/04/17 23:24 ABG O2 Saturation 95 % (95-98) 06/04/17 23:24 PT/INR, D-dimer PT 14.2 Seconds (9.4-12.1) H 06/04/17 23:10 - VTE Documentation of Mechanical Device: Graduated compression elastic hosiery Consult Discharge Plan - Plan Referrals: Heaven Mendoza, ASSEMBLY ROOM SUPERVISOR [Primary Care Provider] -
[2017-06-09] MEDS: Aspirin Enteric Coated 81 MG Tablet PO SCH (08:21)
[2017-06-09] MEDS: Cholecalciferol (D-3) 1,000 UNIT TABLET PO SCH ×2 (08:22→20:16)
[2017-06-09] MEDS: *HR* GlipiZIDE XL (24 HR) 10 MG TABLET PO SCH (08:22)
[2017-06-09] MEDS: Insulin LISPRO 300 UNITS/3 ML VIAL SQ SCH ×3 (08:26→16:31)
[2017-06-10] MEDS ORDERED: Insulin LISPRO 300 UNITS/3 ML VIAL SQ ONE (00:02)
[2017-06-10] MEDS: hydrALAZINE 25 MG TABLET PO SCH ×2 (00:04→08:08)
[2017-06-10] MEDS ORDERED: amLODIPine 5 MG TABLET PO SCH (02:15)
[2017-06-10] MEDS: cloNIDine HCl 0.1 MG TABLET PO SCH (05:08)
[2017-06-10] MEDS: methylPREDNISolone 125 MG/2 ML VIAL IVP SCH (05:09)
[2017-06-10] MEDS: Doxycycline 100 MG in 0.9 % Sodium Chloride Mini Bag 100 ML IVPB SCH (05:12)
[2017-06-10] MEDS: *HR* OxyCODONE Immed Rel 5 MG TABLET PO SCH (08:08)
[2017-06-10] MEDS: *HR* GlipiZIDE XL (24 HR) 10 MG TABLET PO SCH (08:08)
[2017-06-10] MEDS: hydroCHLOROthiazide 25 MG TABLET PO SCH (08:08)
[2017-06-10] MEDS: Aspirin Enteric Coated 81 MG Tablet PO SCH (08:08)
[2017-06-10] MEDS: Cholecalciferol (D-3) 1,000 UNIT TABLET PO SCH (08:08)
[2017-06-10] MEDS: Isosorbide MONOnitrate (24 HR) 60 MG TAB.ER.24H PO SCH (08:09)
[2017-06-10] MEDS: Insulin LISPRO 300 UNITS/3 ML VIAL SQ SCH ×2 (08:11→12:09)
--- NOTE | 2017-06-10 08:39 | Internal Med Progress Note ---
Date of Encounter: 06/10/17 Time of Encounter: 08:38 - Assessment and plan (1) Right lower lobe pneumonia Status: Acute Assessment and plan: Patient was admitted with right lower lobe pneumonia and confusion and now markedly improved from a pulmonary point of view. We are tapering her oxygen. She is increasing her activity level. She has no significant pulmonary symptoms currently. We are trying to get her into a swing bed for ongoing intermediate, increase her ADLs back to baseline and we will continue the IV antibiotics a while longer. Qualifiers: Pneumonia type: due to unspecified organism Qualified Code(s): J18.1 - Lobar pneumonia, unspecified organism (2) Chronic kidney disease (CKD) Status: Chronic Assessment and plan: History chronic kidney disease with acute kidney injury now improved. Her creatinine is basically at baseline. She follows with nephrology/Dr. Bobo Qualifiers: Chronic kidney disease stage: stage 3 (moderate) Qualified Code(s): N18.3 - Chronic kidney disease, stage 3 (moderate) (3) COPD (chronic obstructive pulmonary disease) Status: Chronic Assessment and plan: Chronic COPD is stabilized. No wheezing. I am going to taper down the IV steroids. Nebulizer treatment when necessary. Qualifiers: COPD type: COPD with acute lower respiratory infection Qualified Code(s): J44.0 - Chronic obstructive pulmonary disease with acute lower respiratory infection (4) Diabetes mellitus Status: Chronic Assessment and plan: Her sugars have escalated recently likely due to the IV Solu-Medrol. Sliding scale coverage. Qualifiers: Diabetes mellitus type: type 2 Diabetes mellitus skilled nursing insulin use: without skilled nursing use Diabetes mellitus complication status: with circulatory complication Diabetes mellitus complication detail: with other circulatory complications Qualified Code(s): E11.59 - Type 2 diabetes mellitus with other circulatory complications (5) Chronic low back pain Status: Chronic Qualifiers: Back pain laterality: bilateral Sciatica presence: without sciatica Qualified Code(s): M54.5 - Low back pain; G89.29 - Other chronic pain; G89.29 - Other chronic pain (6) Bilateral carotid artery disease Status: Acute (7) Coronary artery disease Status: Chronic Assessment and plan: No angina or CHF. Qualifiers: Coronary Disease-Associated Artery/Lesion type: [place] artery [place] vs. transplanted heart: [place] heart Associated angina: without angina Qualified Code(s): I25.10 - Atherosclerotic heart disease of [place] coronary artery without angina pectoris (8) Essential hypertension Status: Chronic Assessment and plan: She has accelerated hypertension the past few days. This may be multifactorial. When she was admitted smoke for medications were tapered back because she was confused and lethargic and had poor by mouth intake because of her pneumonia. We then checked with the pharmacy to confirm her usual hypertensive medications and those were restarted. Over the weekend and when the IV Solu-Medrol was started her blood pressure started to escalate particularly through the night to the [address] Suarez added losartan. Her clonidine has been bumped up to 0.2 mg every 8 hours. Now I have found out that her medications per Dr. Bobo's last progress note it eCW included amlodipine and hydralazine. These were restarted late last night. It may take a few days to kick in. Her pressure this morning for me was 178/ 72. She is not having any cardiac or neurological symptoms related to this. It sounds like she is likely uncontrolled at home into the 160s and 170s per her discussion today. I will contact Dr. Bobo to get his advice as to how to proceed. (9) Chest pain Status: Resolved Assessment and plan: She is no longer having any chest pain. On admission in the ER she had atypical chest pain presentation. Qualifiers: Chest pain type: other chest pain Qualified Code(s): R07.89 - Other chest pain; R07.8 - Other chest pain (10) Thrombocytopenia Status: Acute Assessment and plan: Thrombocytopenia is spontaneously improving. The thrombocytopenia was seen on admission and before she was given a dose of Lovenox. As an outpatient she has had some minimally low platelets. No signs of active bleeding. We will continue to follow. (11) DVT prophylaxis Status: Acute Assessment and plan: Compression stockings and pneumatic devices - Subjective Interval history: Patient states that overall she is feeling better. She is getting up and around and using a walker for increased stability. She is not having any significant dyspnea now. No significant sputum production. She feels markedly improved from a pulmonary point of view compared to admission. She did not get much sleep last night because she is worried about her blood pressure. The past 2-3 days her systolic has been getting up into the 200s systolic range. She denies any headache, blurred vision, chest pain, palpitations, unilateral changes, ELEMENTARY ASSISTANT PRINCIPAL/confusion problems. She states that at home her pressure is frequently in the 160-170 range systolic. She is uncertain about her blood pressure medications. I told her that I have compared the medications refilled at [facility] with the list of medications that Dr. Bobo thinks that she takes and there is a significant discrepancy. She said she was told at one time to bring all of her medications in to check the pill bottles but she did not do that yet. (It appears she has not been refilling hydralazine and amlodipine at the pharmacy and these were not included in her admission medications). - Constitutional Vitals: Temp Pulse Resp BP Pulse Ox 97.9 F 61 18 200/73 96 06/10/17 07:04 06/10/17 07:04 06/10/17 07:04 06/10/17 07:04 06/10/17 07:04 General appearance: Present: A&O X 3, no acute distress, obese, answers questions appropriately - Respiratory Additional comments: Slightly diminished breath sounds and a few atelectatic crackles in the bases. No wheezing. No respiratory distress. - Cardiovascular Cardiovascular exam: Present: RRR, +S1, +S2, systolic murmur (2/6 systolic murmur at the left sternal border) - GI/Abdominal GI/Abdominal exam: Present: soft. Absent: mass, tenderness - Extremities Exam Extremities exam: Absent: calf tenderness, pedal edema, tenderness - Neurological Exam Neurological exam: Present: alert, CN II-XII intact, oriented X3, no focal deficits Internal Medicine: Result - Labs CBC & Chem 7: 06/08/17 04:50 06/10/17 09:00 Labs: Her lab work shows the hemoglobin has stabilized. Her platelet count has modestly increased from its jose. Her creatinine is at its baseline. Blood sugars elevated likely from her steroid use - ABG Interpretation ABG results: ABG ABG pH 7.42 pH Units (7.32-7.45) 06/04/17 23:24 ABG pCO2 47 mmHg (35-45) H 06/04/17 23:24 ABG pO2 76 mmHg (85-104) L 06/04/17 23:24 ABG O2 Saturation 95 % (95-98) 06/04/17 23:24 PT/INR, D-dimer PT 14.2 Seconds (9.4-12.1) H 06/04/17 23:10 - VTE Documentation of Mechanical Device: Intermittent pneumatic compression device Consult Discharge Plan - Plan Referrals: Heaven Mendoza, FEED RESEARCH AIDE [Primary Care Provider] -
[2017-06-10 09:28] LABS: Calcium 9.5 mg/dL (8.6-10.3); Potassium 3.8 mEq/L (3.5-5.1)
[2017-06-10 13:49] VITALS: BP 192/95
[2017-06-11] MEDS ORDERED: methylPREDNISolone 125 MG/2 ML VIAL IVP SCH (09:00)
--- NOTE | 2017-06-13 07:57 | Discharge Summary ---
- NOTES TO OUTPATIENT PROVIDER Notes to Outpatient Provider: Patient is being transferred to a swing bed at [facility] for ongoing medical and physical therapy care Date of Encounter: 06/10/17 Time of Encounter: 08:02 - Discharge Diagnosis (1) Right lower lobe pneumonia Priority: Primary Status: Acute Comments: Patient was admitted via ER with right lower lobe pneumonia and confusion. She is placed on doxycycline and improved dramatically. However she is not back to baseline LV transferred to a swing bed today. Qualifiers: Pneumonia type: due to unspecified organism Qualified Code(s): J18.1 - Lobar pneumonia, unspecified organism (2) Chronic kidney disease (CKD) Priority: Secondary Status: Chronic Comments: History chronic kidney disease with acute kidney injury on admission. Her creatinine is basically back to baseline. She is being transferred to a swing bed today. Qualifiers: Chronic kidney disease stage: stage 3 (moderate) Qualified Code(s): N18.3 - Chronic kidney disease, stage 3 (moderate) (3) COPD (chronic obstructive pulmonary disease) Priority: Secondary Status: Chronic Comments: Patient was started on Cipro medical because of wheezing during this hospital stay. She is markedly improved. Qualifiers: COPD type: COPD with acute lower respiratory infection Qualified Code(s): J44.0 - Chronic obstructive pulmonary disease with acute lower respiratory infection (4) Diabetes mellitus Priority: Secondary Status: Chronic Comments: She had exacerbation of her chronic diabetes because of IV Solu-Medrol. We continue to monitor. Has sliding scale insulin. She is being transferred to a swing bed. Qualifiers: Diabetes mellitus type: type 2 Diabetes mellitus silk snapper insulin use: without retirement use Diabetes mellitus complication status: with circulatory complication Diabetes mellitus complication detail: with other circulatory complications Qualified Code(s): E11.59 - Type 2 diabetes mellitus with other circulatory complications (5) Chronic low back pain Priority: Secondary Status: Chronic Comments: Patient has chronic back pain with exacerbation having had a fall at home. She needs therapies to help regain her ADLs. Qualifiers: Back pain laterality: bilateral Sciatica presence: without sciatica Qualified Code(s): M54.5 - Low back pain; G89.29 - Other chronic pain; G89.29 - Other chronic pain (6) Bilateral carotid artery disease Priority: Secondary Status: Acute (7) Coronary artery disease Priority: Secondary Status: Chronic Comments: She has had no angina or CHF. She had chest pain in the ER likely noncardiac. She had serial troponins which were negative. Qualifiers: Coronary Disease-Associated Artery/Lesion type: [place] artery [place] vs. transplanted heart: [place] heart Associated angina: without angina Qualified Code(s): I25.10 - Atherosclerotic heart disease of [place] coronary artery without angina pectoris (8) Essential hypertension Priority: Secondary Status: Chronic Comments: Patient has had exacerbation of her chronic hypertension. We found out that she is not taking her prescribed medications. We have now restarted all of her baseline medications and her blood pressures are improving. We will need to continue to monitor. She will be transferred to a swing bed for ongoing nursing care. (9) Chest pain Priority: Secondary Status: Resolved Comments: She had chest pain in the ER negative troponins. No CHF or angina since then. Qualifiers: Chest pain type: other chest pain Qualified Code(s): R07.89 - Other chest pain; R07.8 - Other chest pain (10) Thrombocytopenia Priority: Secondary Status: Acute Comments: She has mild chronic thrombocytopenia, and that worsened on admission and now improving. We will continue to monitor. (11) DVT prophylaxis Priority: Secondary Status: Acute Comments: Pneumatic compression devices in elastic stockings and early ambulation for DVT prophylaxis because of her low platelet count. Hospital course: Ms. Rubin is a 77 year old female admitted with right lower lobe pneumonia. Please see the diagnoses above. See the progress note from earlier today. - Time Spent with Patient Total time spent providing and/or coordinating discharge services: - Discharge Medications Home Medications: Allopurinol [Zyloprim 100 MG] 100 mg PO BID 11/29/16 [History] Aspirin [Lo-Dose Aspirin EC] 81 mg PO DAILY 11/29/16 [History] Carvedilol [Coreg] 25 mg PO BID 11/29/16 [History] Cholecalciferol (D-3) [Vitamin D] 1,000 unit PO BID 11/29/16 [History] GlipiZIDE [Glipizide Xl] 10 mg PO DAILY 11/29/16 [History] Isosorbide MONOnitrate (24 HR) [Imdur] 60 mg PO DAILY 11/29/16 [History] Nitroglycerin [Nitrostat] 0.4 mg SL DAILY PRN 11/29/16 [History] Omeprazole [PriLOSEC] 20 mg PO DAILY 11/29/16 [History] OxyCODONE Immed Rel [Roxicodone 10 MG] 10 mg PO TID 11/29/16 [History] cloNIDine HCl [CloNIDine HCl] 0.1 mg PO TID 11/29/16 [History] Atorvastatin [Lipitor] 40 mg PO HS 06/06/17 [History] Potassium Chloride [K-Tab ER] 20 meq PO DAILY 06/06/17 [History] hydroCHLOROthiazide [Hydrochlorothiazide] 25 mg PO DAILY 06/06/17 [History] Allergies/Adverse Reactions: 3 Allergy/AdvReac Type Severity Reaction Status Date / Time cephalexin [From Keflex] Allergy Rash Verified 06/04/17 23:41 Penicillins Allergy Rash Verified 06/04/17 23:41 ciprofloxacin [From Cipro] AdvReac See Verified 06/04/17 23:41 Comments NSAIDS (Non-Steroidal AdvReac See Verified 06/04/17 23:41 Anti-Inflamma Comments Zolpidem [From Ambien] AdvReac See Verified 06/04/17 23:41 Comments Nasal [place] Allergy Unknown See Uncoded 06/04/17 23:41 Comments Date of admission: 06/05/17 11:36 Primary care physician: Heaven Mendoza CNP Discharging clinician: Andres Rock Anticipated date of discharge: 06/10/17 - Constitutional Vitals: Temp Pulse Resp BP Pulse Ox 97.6 F 55 18 192/95 98 06/10/17 11:50 06/10/17 11:50 06/10/17 11:50 06/10/17 11:50 06/10/17 11:50 General appearance: Present: A&O X 3, no acute distress, obese, answers questions appropriately - Respiratory Respiratory exam: Present: decreased breath sounds, CTAB - Cardiovascular Cardiovascular exam: Present: RRR, +S1, +S2 - GI/Abdominal GI/Abdominal exam: Present: soft. Absent: tenderness - Extremities Exam Extremities exam: Absent: pedal edema, tenderness - Patient Status Disposition: Transfer Hospital Swing Bed Condition: Fair - Discharge Instructions Follow Up With: Heaven Mendoza CNP [Primary Care Provider] - Forms: ED Satisfaction Letter - Diet and Activity Activity: as per physical therapy Diet: diabetic diet, low salt diet - VTE Documentation of Mechanical Device: Intermittent pneumatic compression device
== END 2017-06-10 14:41 | disposition other institution (70) | DRG 194 ==
LOC: INPGRE 22:07 → EMEROOGRE 22:07 → INPGRE 06-05 03:00
PROVIDERS: ADMIT Family Medicine; ATTEND Family Medicine

== ENCOUNTER 2019-01-12 11:23 | Inpatient (IN) ==
[2019-01-12 12:14] LABS: Basophils % 0.2 %; Eosinophils # 0.1 K/mcL (0.0-0.6); Eosinophils % 2.2 %; Hematocrit 30.7 % (35.3-44.9); Hemoglobin 9.5 g/dL (11.5-15.4); Immature Granulocytes % 2.2 % (0-4); Lymphocytes # 0.8 K/mcL (0.6-4.6); Lymphocytes % 17.1 %; Mean Corpuscular HGB Conc 30.9 g/dL (31.6-35.5); Mean Corpuscular Hemoglobin 34.9 pg (28.0-33.3); Mean Corpuscular Volume 112.9 fL (83.0-100.0); Mean Platelet Volume 12.6 fL (9.4-12.4); Monocytes # 0.4 K/mcL (0.0-1.3); Monocytes % 8.2 %; Neutrophils # 3.2 K/mcL (1.6-8.9); Platelet Count 112 K/mcL (140-400); Red Blood Count 2.72 M/mcL (3.82-4.97); Red Cell Distribution Width 14.1 % (11.5-14.5); Segmented Neutrophils % 70.1 %; White Blood Count 4.5 K/mcL (4.3-11.1)
[2019-01-12 12:25] LABS: Macrocytosis Present (Not Present); Platelet Estimate Decreased (Normal)
[2019-01-12 12:29] LABS: BUN/Creatinine Ratio 25 (6-26); Blood Urea Nitrogen 75 mg/dL (8-23); Calcium 8.8 mg/dL (8.6-10.3); Carbon Dioxide 25 mEq/L (23-29); Chloride 105 mEq/L (98-107); Glucose 227 mg/dL (70-105); Osmolality,Calculated 315 (280-300); Sodium 138 mEq/L (136-145); eGFR For African Americans 18 (> 60); eGFR For Non-African Americans 15 (> 60)
[2019-01-12 12:30] LABS: Troponin I < 0.03 ng/mL (< 0.04)
[2019-01-12 12:57] LABS: Bilirubin,Urine Small (Negative); Blood,Urine Negative (Negative); Clarity,Urine Clear (Clear); Color,Urine Yellow (Yellow); Glucose,Urine (UA) Normal (Normal); Ketones,Urine Negative (Negative); Leukocyte Esterase,Urine Large (Negative); Nitrite,Urine Negative (Negative); Protein,Urine 30 mg/dL (Neg-Trace); Urobilinogen,Urine Normal (Normal)
[2019-01-12 13:06] LABS: Bacteria,Urine Moderate per hpf (None-Few); Squamous Epithelial Cell,Urine Few per lpf (None-Few); WBC,Urine TNTC per hpf (0-3)
[2019-01-12] MEDS ORDERED: cefTRIAXone 1,000 MG in Water for inj. (sterile) 10 ML IVP ONE (13:26)
[2019-01-12] MEDS ORDERED: 0.9 % Sodium Chloride 1,000 ML IVC SCH (13:30)
[2019-01-12] MEDS ORDERED: Naloxone 0.4 MG/ML INJ IVP PRN ×2 (14:22→15:30)
[2019-01-12] MEDS ORDERED: Nitroglycerin 0.4 MG TAB.SUBL SL PRN (15:30)
[2019-01-12] MEDS: 0.9 % Sodium Chloride 1,000 ML IVC SCH (15:30)
[2019-01-12] MEDS ORDERED: Ipratropium/Albuterol Neb 3 ML IH PRN (15:30)
[2019-01-12] MEDS: hydrALAZINE 25 MG TABLET PO SCH (17:12)
[2019-01-12] MEDS: cloNIDine HCl 0.1 MG TABLET PO SCH ×2 (17:17→21:41)
[2019-01-12] MEDS ORDERED: *HR* Enoxaparin 30 MG/0.3 ML SYRINGE SQ SCH (18:00)
[2019-01-12] MEDS ORDERED: D5% in Water 1,000 ML IVC PRN (20:20)
[2019-01-12] MEDS ORDERED: *HR* Dextrose 50 % in Water (Syg) 50 ML SYRINGE IVP PRN (20:20)
[2019-01-12] MEDS ORDERED: Dextrose Gel 15 GM/37.5 ML TUBE PO PRN ×2 (20:20)
[2019-01-12] MEDS: *HR* GlipiZIDE XL (24 HR) 10 MG TABLET PO SCH (20:45)
[2019-01-12] MEDS: *HR* OxyCODONE Immed Rel 5 MG TABLET PO PRN (20:45)
[2019-01-12] MEDS: Cholecalciferol (D-3) 1,000 UNIT (25MCG) TABLET PO SCH (20:45)
[2019-01-12] MEDS ORDERED: Insulin LISPRO 300 UNITS/3 ML VIAL SQ SCH (21:00)
[2019-01-13] MEDS: 0.9 % Sodium Chloride 1,000 ML IVC SCH ×2 (00:20→07:48)
[2019-01-13] MEDS: hydrALAZINE 25 MG TABLET PO SCH ×2 (00:20→06:00)
[2019-01-13 05:26] LABS: Basophils % 0.5 %; Eosinophils # 0.1 K/mcL (0.0-0.6); Eosinophils % 2.8 %; Hematocrit 27.2 % (35.3-44.9); Hemoglobin 8.3 g/dL (11.5-15.4); Immature Granulocytes % 4.1 % (0-4); Lymphocytes # 0.9 K/mcL (0.6-4.6); Lymphocytes % 23.7 %; Mean Corpuscular HGB Conc 30.5 g/dL (31.6-35.5); Mean Corpuscular Hemoglobin 34.4 pg (28.0-33.3); Mean Corpuscular Volume 112.9 fL (83.0-100.0); Monocytes # 0.3 K/mcL (0.0-1.3); Monocytes % 8.8 %; Neutrophils # 2.3 K/mcL (1.6-8.9); Red Blood Count 2.41 M/mcL (3.82-4.97); Segmented Neutrophils % 60.1 %; White Blood Count 3.9 K/mcL (4.3-11.1)
[2019-01-13 05:27] LABS: Platelet Count 94 K/mcL (140-400)
[2019-01-13 05:41] LABS: Calcium 8.4 mg/dL (8.6-10.3)
[2019-01-13] MEDS ORDERED: *HR* Enoxaparin 30 MG/0.3 ML SYRINGE SQ SCH (06:00)
[2019-01-13 06:50] LABS: Acinetobacter baumannii by PCR Not Detected (Not Detect); Candida albicans by PCR Not Detected (Not Detect); Candida glabrata by PCR Not Detected (Not Detect); Candida krusei by PCR Not Detected (Not Detect); Candida parapsilosis by PCR Not Detected (Not Detect); Candida tropicalis by PCR Not Detected (Not Detect); Enterobacter cloacae Cmplx PCR Not Detected (Not Detect); Enterobacteriaceae by PCR Not Detected (Not Detect); Enterococcus by PCR Not Detected (Not Detect); Escherichia coli by PCR Not Detected (Not Detect); Klebsiella oxytoca by PCR Not Detected (Not Detect); Klebsiella pneumoniae by PCR Not Detected (Not Detect); Proteus by PCR Not Detected (Not Detect); Pseudomonas aeruginosa by PCR Not Detected (Not Detect); Serratia marcescens by PCR Not Detected (Not Detect); Staphylococcus aureus by PCR Not Detected (Not Detect); Staphylococcus by PCR Not Detected (Not Detect); Streptococcus agalactiae(B)PCR Not Detected (Not Detect); Streptococcus by PCR DETECTED (Not Detect); Streptococcus pneumoniae PCR Not Detected (Not Detect); Streptococcus pyogenes (A) PCR Not Detected (Not Detect)
[2019-01-13] MEDS ORDERED: Tiotropium 18 MCG inhalation IH SCH (07:00)
[2019-01-13 07:21] VITALS: BP 158/62
[2019-01-13] MEDS ORDERED: Insulin LISPRO 300 UNITS/3 ML VIAL SQ SCH (07:30)
[2019-01-13] MEDS: cloNIDine HCl 0.1 MG TABLET PO SCH (07:47)
[2019-01-13] MEDS: Cholecalciferol (D-3) 1,000 UNIT (25MCG) TABLET PO SCH (07:47)
[2019-01-13] MEDS: *HR* GlipiZIDE XL (24 HR) 10 MG TABLET PO SCH (07:48)
[2019-01-13] MEDS ORDERED: cefTRIAXone 1,000 MG in Water for inj. (sterile) 10 ML IVP SCH (09:00)
[2019-01-13] MEDS ORDERED: amLODIPine 5 MG TABLET PO SCH (09:00)
[2019-01-13] MEDS ORDERED: Aspirin Enteric Coated 81 MG Tablet PO SCH (09:00)
[2019-01-13] MEDS ORDERED: Isosorbide MONOnitrate (24 HR) 60 MG TAB.ER.24H PO SCH (09:00)
[2019-01-13] MEDS: *HR* OxyCODONE Immed Rel 5 MG TABLET PO PRN (10:10)
== END 2019-01-13 11:21 | disposition other institution (70) | DRG 690 ==
LOC: EMEROOGRE 11:23 → INPGRE 11:23 → SUATTDRO 16:06
PROVIDERS: ADMIT Family Medicine; ATTEND Internal Medicine

== ENCOUNTER 2019-08-26 16:02 | Inpatient (IN) ==
[2019-08-26] MEDS ORDERED: Dextrose Gel 15 GM/37.5 ML TUBE PO PRN ×2 (18:48)
[2019-08-26] MEDS ORDERED: *HR* Dextrose 50 % in Water (Syg) 50 ML SYRINGE IVP PRN (18:48)
[2019-08-26] MEDS ORDERED: D5% in Water 1,000 ML IVC PRN (18:48)
[2019-08-26] MEDS: hydrALAZINE 25 MG TABLET PO SCH (20:55)
[2019-08-26] MEDS: cloNIDine HCL 0.1 MG TABLET PO SCH (21:05)
[2019-08-26] MEDS: *HR* OxyCODONE Immed Rel 5 MG TABLET PO PRN (21:08)
[2019-08-26] MEDS: Sennosides 8.6 MG TABLET PO SCH (21:10)
[2019-08-26] MEDS: Insulin LISPRO 300 UNITS/3 ML VIAL SQ SCH (21:15)
[2019-08-26] MEDS: Budesonide/Formoterol 160/4.5 1 PUFF INH IH SCH (23:58)
[2019-08-27] MEDS: *HR* Enoxaparin 30 MG/0.3 ML SYRINGE SQ SCH (05:22)
[2019-08-27] MEDS: *HR* OxyCODONE Immed Rel 5 MG TABLET PO PRN ×3 (05:23→22:09)
[2019-08-27] MEDS: Budesonide/Formoterol 160/4.5 1 PUFF INH IH SCH ×2 (07:57→20:30)
[2019-08-27] MEDS ORDERED: Sennosides 8.6 MG TABLET PO SCH (09:00)
[2019-08-27] MEDS: Isosorbide MONOnitrate (24 HR) 60 MG TAB.ER.24H PO SCH (09:11)
[2019-08-27] MEDS: amLODIPine 5 MG TABLET PO SCH (09:11)
[2019-08-27] MEDS: Sennosides 8.6 MG TABLET PO SCH ×2 (09:11→22:07)
[2019-08-27] MEDS: predniSONE 10 MG TABLET PO SCH (09:12)
[2019-08-27] MEDS: Cholecalciferol (D-3) 1,000 UNIT (25MCG) TABLET PO SCH (09:12)
[2019-08-27] MEDS: allopurinoL 100 MG TABLET PO SCH (09:12)
[2019-08-27] MEDS: Aspirin Enteric Coated 81 MG Tablet PO SCH (09:12)
[2019-08-27] MEDS: carvediloL 25 MG TABLET PO SCH (09:12)
[2019-08-27] MEDS: cloNIDine HCL 0.1 MG TABLET PO SCH ×2 (09:12→22:07)
[2019-08-27] MEDS: *HR* GlipiZIDE XL (24 HR) 10 MG TABLET PO SCH (09:12)
[2019-08-27] MEDS: hydrALAZINE 25 MG TABLET PO SCH ×3 (09:12→22:06)
[2019-08-27] MEDS: Insulin LISPRO 300 UNITS/3 ML VIAL SQ SCH ×4 (09:13→22:07)
[2019-08-28] MEDS: *HR* OxyCODONE Immed Rel 5 MG TABLET PO PRN ×2 (04:42→12:13)
[2019-08-28] MEDS: *HR* Enoxaparin 30 MG/0.3 ML SYRINGE SQ SCH (04:43)
[2019-08-28] MEDS: cloNIDine HCL 0.1 MG TABLET PO SCH ×2 (08:48→20:25)
[2019-08-28] MEDS: Sennosides 8.6 MG TABLET PO SCH ×2 (08:48→20:25)
[2019-08-28] MEDS: *HR* GlipiZIDE XL (24 HR) 10 MG TABLET PO SCH (08:49)
[2019-08-28] MEDS: carvediloL 25 MG TABLET PO SCH ×2 (08:49→17:01)
[2019-08-28] MEDS: Aspirin Enteric Coated 81 MG Tablet PO SCH (08:49)
[2019-08-28] MEDS: hydrALAZINE 25 MG TABLET PO SCH ×3 (08:50→20:25)
[2019-08-28] MEDS: allopurinoL 100 MG TABLET PO SCH (08:50)
[2019-08-28] MEDS: predniSONE 10 MG TABLET PO SCH (08:50)
[2019-08-28] MEDS: Insulin LISPRO 300 UNITS/3 ML VIAL SQ SCH ×4 (08:51→20:28)
[2019-08-28] MEDS: amLODIPine 5 MG TABLET PO SCH (08:51)
[2019-08-28] MEDS: Isosorbide MONOnitrate (24 HR) 60 MG TAB.ER.24H PO SCH (08:51)
[2019-08-28] MEDS: Cholecalciferol (D-3) 1,000 UNIT (25MCG) TABLET PO SCH (08:51)
[2019-08-28] MEDS: Budesonide/Formoterol 160/4.5 1 PUFF INH IH SCH ×2 (09:24→20:31)
[2019-08-28] MEDS ORDERED: Albuterol 2.5 MG/3 ML NEBULIZER IH PRN (18:32)
[2019-08-29 05:16] LABS: Basophils % 0.4 %; Eosinophils # 0.1 K/mcL (0.0-0.6); Eosinophils % 1.4 %; Hematocrit 25.4 % (35.3-44.9); Hemoglobin 8.2 g/dL (11.5-15.4); Lymphocytes # 0.3 K/mcL (0.6-4.6); Lymphocytes % 5.9 %; Mean Corpuscular HGB Conc 32.3 g/dL (31.6-35.5); Mean Corpuscular Hemoglobin 35.2 pg (28.0-33.3); Mean Platelet Volume 13.7 fL (9.4-12.4); Monocytes # 0.3 K/mcL (0.0-1.3); Neutrophils # 4.8 K/mcL (1.6-8.9); Red Blood Count 2.33 M/mcL (3.82-4.97); Segmented Neutrophils % 85.3 %; White Blood Count 5.6 K/mcL (4.3-11.1)
[2019-08-29] MEDS: *HR* Enoxaparin 30 MG/0.3 ML SYRINGE SQ SCH (05:23)
[2019-08-29 05:26] LABS: Platelet Count 60 K/mcL (140-400)
[2019-08-29 05:35] LABS: Calcium 8.7 mg/dL (8.6-10.3); Potassium 4.5 mEq/L (3.5-5.1)
[2019-08-29] MEDS: *HR* GlipiZIDE XL (24 HR) 10 MG TABLET PO SCH (07:42)
[2019-08-29] MEDS: predniSONE 10 MG TABLET PO SCH (07:42)
[2019-08-29] MEDS: polyethylene glycoL 3350 17 GM POWD.PACK PO SCH (07:43)
[2019-08-29] MEDS: allopurinoL 100 MG TABLET PO SCH (07:43)
[2019-08-29] MEDS: Sennosides 8.6 MG TABLET PO SCH ×2 (07:43→20:30)
[2019-08-29] MEDS: Isosorbide MONOnitrate (24 HR) 60 MG TAB.ER.24H PO SCH (07:43)
[2019-08-29] MEDS: *HR* OxyCODONE Immed Rel 5 MG TABLET PO PRN (07:43)
[2019-08-29] MEDS: amLODIPine 5 MG TABLET PO SCH (07:43)
[2019-08-29] MEDS: Cholecalciferol (D-3) 1,000 UNIT (25MCG) TABLET PO SCH (07:43)
[2019-08-29] MEDS: cloNIDine HCL 0.1 MG TABLET PO SCH ×2 (07:43→20:30)
[2019-08-29] MEDS: Aspirin Enteric Coated 81 MG Tablet PO SCH (07:44)
[2019-08-29] MEDS: hydrALAZINE 25 MG TABLET PO SCH ×3 (07:44→20:29)
[2019-08-29] MEDS: carvediloL 25 MG TABLET PO SCH ×3 (07:45→16:32)
[2019-08-29] MEDS: Insulin LISPRO 300 UNITS/3 ML VIAL SQ SCH ×4 (07:57→20:31)
[2019-08-29] MEDS: Budesonide/Formoterol 160/4.5 1 PUFF INH IH SCH ×2 (10:06→20:21)
[2019-08-29] MEDS ORDERED: Simethicone 80 MG TAB.CHEW PO PRN (20:23)
[2019-08-30] MEDS: *HR* Enoxaparin 30 MG/0.3 ML SYRINGE SQ SCH (05:13)
[2019-08-30 05:31] LABS: Basophils % 0.3 %; Eosinophils # 0.1 K/mcL (0.0-0.6); Eosinophils % 1.5 %; Hematocrit 26.4 % (35.3-44.9); Hemoglobin 8.5 g/dL (11.5-15.4); Immature Granulocytes % 3.4 % (0-4); Lymphocytes # 0.5 K/mcL (0.6-4.6); Lymphocytes % 7.5 %; Mean Corpuscular HGB Conc 32.2 g/dL (31.6-35.5); Mean Corpuscular Hemoglobin 35.1 pg (28.0-33.3); Mean Corpuscular Volume 109.1 fL (83.0-100.0); Mean Platelet Volume 13.7 fL (9.4-12.4); Monocytes # 0.3 K/mcL (0.0-1.3); Monocytes % 4.7 %; Neutrophils # 5.4 K/mcL (1.6-8.9); Red Blood Count 2.42 M/mcL (3.82-4.97); Red Cell Distribution Width 17.1 % (11.5-14.5); Segmented Neutrophils % 82.6 %; White Blood Count 6.5 K/mcL (4.3-11.1)
[2019-08-30 05:34] LABS: Platelet Count 67 K/mcL (140-400)
[2019-08-30 05:46] LABS: Calcium 8.9 mg/dL (8.6-10.3); Potassium 4.5 mEq/L (3.5-5.1)
[2019-08-30] MEDS: Insulin LISPRO 300 UNITS/3 ML VIAL SQ SCH ×4 (08:24→20:33)
[2019-08-30] MEDS: Budesonide/Formoterol 160/4.5 1 PUFF INH IH SCH ×2 (09:44→20:25)
[2019-08-30] MEDS: predniSONE 10 MG TABLET PO SCH (10:02)
[2019-08-30] MEDS: *HR* GlipiZIDE XL (24 HR) 10 MG TABLET PO SCH (10:02)
[2019-08-30] MEDS: amLODIPine 5 MG TABLET PO SCH (10:02)
[2019-08-30] MEDS: allopurinoL 100 MG TABLET PO SCH (10:02)
[2019-08-30] MEDS: Sennosides 8.6 MG TABLET PO SCH ×2 (10:02→20:33)
[2019-08-30] MEDS: Aspirin Enteric Coated 81 MG Tablet PO SCH (10:02)
[2019-08-30] MEDS: carvediloL 25 MG TABLET PO SCH ×2 (10:03→16:52)
[2019-08-30] MEDS: Cholecalciferol (D-3) 1,000 UNIT (25MCG) TABLET PO SCH (10:03)
[2019-08-30] MEDS: hydrALAZINE 25 MG TABLET PO SCH ×3 (10:03→20:32)
[2019-08-30] MEDS: polyethylene glycoL 3350 17 GM POWD.PACK PO SCH (10:03)
[2019-08-30] MEDS: Isosorbide MONOnitrate (24 HR) 60 MG TAB.ER.24H PO SCH (10:03)
[2019-08-30] MEDS: cloNIDine HCL 0.1 MG TABLET PO SCH ×2 (10:03→20:32)
[2019-08-30] MEDS: Furosemide 20 MG TABLET PO SCH (10:03)
[2019-08-30] MEDS: *HR* OxyCODONE Immed Rel 5 MG TABLET PO PRN ×2 (10:27→20:33)
[2019-08-31] MEDS: *HR* OxyCODONE Immed Rel 5 MG TABLET PO PRN ×2 (05:37→20:58)
[2019-08-31] MEDS: *HR* Enoxaparin 30 MG/0.3 ML SYRINGE SQ SCH (05:38)
[2019-08-31 05:45] LABS: Hemoglobin 8.2 g/dL (11.5-15.4)
[2019-08-31] MEDS: Budesonide/Formoterol 160/4.5 1 PUFF INH IH SCH ×2 (08:36→20:34)
[2019-08-31] MEDS: Sennosides 8.6 MG TABLET PO SCH ×2 (09:13→20:54)
[2019-08-31] MEDS: Insulin LISPRO 300 UNITS/3 ML VIAL SQ SCH ×4 (09:13→21:05)
[2019-08-31] MEDS: cloNIDine HCL 0.1 MG TABLET PO SCH ×2 (09:13→20:52)
[2019-08-31] MEDS: allopurinoL 100 MG TABLET PO SCH (09:14)
[2019-08-31] MEDS: predniSONE 10 MG TABLET PO SCH (09:14)
[2019-08-31] MEDS: Aspirin Enteric Coated 81 MG Tablet PO SCH (09:14)
[2019-08-31] MEDS: amLODIPine 5 MG TABLET PO SCH (09:14)
[2019-08-31] MEDS: hydrALAZINE 25 MG TABLET PO SCH ×3 (09:14→20:53)
[2019-08-31] MEDS: carvediloL 25 MG TABLET PO SCH ×2 (09:14→17:25)
[2019-08-31] MEDS: *HR* GlipiZIDE XL (24 HR) 10 MG TABLET PO SCH (09:14)
[2019-08-31] MEDS: Isosorbide MONOnitrate (24 HR) 60 MG TAB.ER.24H PO SCH (09:14)
[2019-08-31] MEDS: Furosemide 20 MG TABLET PO SCH (09:15)
[2019-08-31] MEDS: Cholecalciferol (D-3) 1,000 UNIT (25MCG) TABLET PO SCH (09:15)
[2019-08-31] MEDS: polyethylene glycoL 3350 17 GM POWD.PACK PO SCH (09:15)
[2019-08-31] MEDS ORDERED: Bisacodyl 10 MG RECTAL SUPPOSITORY RC ONE (11:15)
[2019-09-01] MEDS: *HR* Enoxaparin 30 MG/0.3 ML SYRINGE SQ SCH (05:19)
[2019-09-01 05:47] LABS: Basophils % 0.4 %; Eosinophils # 0.1 K/mcL (0.0-0.6); Eosinophils % 1.2 %; Hematocrit 25.7 % (35.3-44.9); Hemoglobin 8.2 g/dL (11.5-15.4); Lymphocytes # 0.4 K/mcL (0.6-4.6); Mean Corpuscular HGB Conc 31.9 g/dL (31.6-35.5); Mean Corpuscular Hemoglobin 35.2 pg (28.0-33.3); Mean Corpuscular Volume 110.3 fL (83.0-100.0); Monocytes # 0.3 K/mcL (0.0-1.3); Monocytes % 5.1 %; Neutrophils # 4.3 K/mcL (1.6-8.9); Red Blood Count 2.33 M/mcL (3.82-4.97); Red Cell Distribution Width 16.9 % (11.5-14.5); Segmented Neutrophils % 84.3 %; White Blood Count 5.1 K/mcL (4.3-11.1)
[2019-09-01 05:48] LABS: Platelet Count 59 K/mcL (140-400)
[2019-09-01 06:01] LABS: Calcium 8.7 mg/dL (8.6-10.3); Potassium 4.6 mEq/L (3.5-5.1)
[2019-09-01] MEDS: Budesonide/Formoterol 160/4.5 1 PUFF INH IH SCH ×2 (07:08→19:23)
[2019-09-01] MEDS: Insulin LISPRO 300 UNITS/3 ML VIAL SQ SCH ×4 (08:27→22:04)
[2019-09-01] MEDS: polyethylene glycoL 3350 17 GM POWD.PACK PO SCH (08:39)
[2019-09-01] MEDS: allopurinoL 100 MG TABLET PO SCH (08:40)
[2019-09-01] MEDS: amLODIPine 5 MG TABLET PO SCH (08:40)
[2019-09-01] MEDS: cloNIDine HCL 0.1 MG TABLET PO SCH ×2 (08:40→21:58)
[2019-09-01] MEDS: hydrALAZINE 25 MG TABLET PO SCH ×3 (08:40→21:57)
[2019-09-01] MEDS: *HR* GlipiZIDE XL (24 HR) 10 MG TABLET PO SCH (08:40)
[2019-09-01] MEDS: Isosorbide MONOnitrate (24 HR) 60 MG TAB.ER.24H PO SCH (08:41)
[2019-09-01] MEDS: carvediloL 25 MG TABLET PO SCH ×2 (08:41→18:35)
[2019-09-01] MEDS: Aspirin Enteric Coated 81 MG Tablet PO SCH (08:41)
[2019-09-01] MEDS: Sennosides 8.6 MG TABLET PO SCH ×2 (08:41→21:59)
[2019-09-01] MEDS: predniSONE 10 MG TABLET PO SCH (08:41)
[2019-09-01] MEDS: Cholecalciferol (D-3) 1,000 UNIT (25MCG) TABLET PO SCH (08:41)
[2019-09-01] MEDS: *HR* OxyCODONE Immed Rel 5 MG TABLET PO PRN ×2 (14:00→22:00)
[2019-09-02] MEDS: *HR* Enoxaparin 30 MG/0.3 ML SYRINGE SQ SCH (05:17)
[2019-09-02] MEDS: Insulin LISPRO 300 UNITS/3 ML VIAL SQ SCH ×4 (08:37→21:04)
[2019-09-02] MEDS: polyethylene glycoL 3350 17 GM POWD.PACK PO SCH (08:44)
[2019-09-02] MEDS: predniSONE 10 MG TABLET PO SCH (08:45)
[2019-09-02] MEDS: Sennosides 8.6 MG TABLET PO SCH ×2 (08:45→21:03)
[2019-09-02] MEDS: Isosorbide MONOnitrate (24 HR) 60 MG TAB.ER.24H PO SCH (08:45)
[2019-09-02] MEDS: allopurinoL 100 MG TABLET PO SCH (08:45)
[2019-09-02] MEDS: carvediloL 25 MG TABLET PO SCH ×2 (08:45→16:50)
[2019-09-02] MEDS: Aspirin Enteric Coated 81 MG Tablet PO SCH (08:45)
[2019-09-02] MEDS: amLODIPine 5 MG TABLET PO SCH (08:45)
[2019-09-02] MEDS: Cholecalciferol (D-3) 1,000 UNIT (25MCG) TABLET PO SCH (08:46)
[2019-09-02] MEDS: Budesonide/Formoterol 160/4.5 1 PUFF INH IH SCH ×2 (08:46→21:22)
[2019-09-02] MEDS: cloNIDine HCL 0.1 MG TABLET PO SCH ×2 (08:46→21:03)
[2019-09-02] MEDS: hydrALAZINE 25 MG TABLET PO SCH ×3 (08:46→21:03)
[2019-09-02] MEDS: *HR* GlipiZIDE XL (24 HR) 10 MG TABLET PO SCH (16:51)
[2019-09-02] MEDS: Furosemide 40 MG TABLET PO SCH (16:52)
[2019-09-02] MEDS: *HR* OxyCODONE Immed Rel 5 MG TABLET PO PRN (21:04)
[2019-09-03] MEDS: *HR* Enoxaparin 30 MG/0.3 ML SYRINGE SQ SCH (06:59)
[2019-09-03 07:26] VITALS: BP 142/51
[2019-09-03] MEDS: Insulin LISPRO 300 UNITS/3 ML VIAL SQ SCH ×2 (09:08→12:20)
[2019-09-03] MEDS: carvediloL 25 MG TABLET PO SCH (09:16)
[2019-09-03] MEDS: Furosemide 40 MG TABLET PO SCH (09:16)
[2019-09-03] MEDS: predniSONE 10 MG TABLET PO SCH (09:16)
[2019-09-03] MEDS: Sennosides 8.6 MG TABLET PO SCH (09:16)
[2019-09-03] MEDS: hydrALAZINE 25 MG TABLET PO SCH (09:17)
[2019-09-03] MEDS: *HR* GlipiZIDE XL (24 HR) 10 MG TABLET PO SCH (09:17)
[2019-09-03] MEDS: Isosorbide MONOnitrate (24 HR) 60 MG TAB.ER.24H PO SCH (09:17)
[2019-09-03] MEDS: amLODIPine 5 MG TABLET PO SCH (09:17)
[2019-09-03] MEDS: allopurinoL 100 MG TABLET PO SCH (09:17)
[2019-09-03] MEDS: cloNIDine HCL 0.1 MG TABLET PO SCH (09:17)
[2019-09-03] MEDS: Aspirin Enteric Coated 81 MG Tablet PO SCH (09:18)
[2019-09-03] MEDS: polyethylene glycoL 3350 17 GM POWD.PACK PO SCH (09:18)
[2019-09-03] MEDS: Cholecalciferol (D-3) 1,000 UNIT (25MCG) TABLET PO SCH (09:19)
[2019-09-03] MEDS: Budesonide/Formoterol 160/4.5 1 PUFF INH IH SCH (09:49)
== END 2019-09-03 15:00 | disposition home health service (06) | DRG 945 ==
LOC: INPGRE 17:23
PROVIDERS: ADMIT Family Medicine; ATTEND Family Medicine

== ENCOUNTER 2019-11-24 17:02 | Inpatient (IN) ==
[2019-11-25] MEDS ORDERED: *HR* HYDROcodone/Acet 5/325 mg TABLET PO PRN (02:06)
[2019-11-25] MEDS: cloNIDine HCL 0.1 MG TABLET PO SCH ×2 (06:12→21:29)
[2019-11-25] MEDS: *HR* Enoxaparin 30 MG/0.3 ML SYRINGE SQ SCH (06:12)
[2019-11-25] MEDS: Doxycycline 100 MG CAPSULE PO SCH ×2 (08:15→21:29)
[2019-11-25] MEDS: Sennosides 8.6 MG TABLET PO SCH ×2 (08:15→21:29)
[2019-11-25] MEDS: Aspirin Enteric Coated 81 MG Tablet PO SCH (08:16)
[2019-11-25] MEDS: Isosorbide MONOnitrate (24 HR) 60 MG TAB.ER.24H PO SCH (08:16)
[2019-11-25] MEDS: hydrALAZINE 25 MG TABLET PO SCH ×3 (08:16→21:29)
[2019-11-25] MEDS: amLODIPine 5 MG TABLET PO SCH (08:16)
[2019-11-25] MEDS: allopurinoL 100 MG TABLET PO SCH (08:16)
[2019-11-25] MEDS: Furosemide 20 MG TABLET PO SCH (08:16)
[2019-11-25] MEDS: carvediloL 25 MG TABLET PO SCH ×2 (08:17→17:15)
[2019-11-25] MEDS: Cholecalciferol (D-3) 1,000 UNIT (25MCG) TABLET PO SCH (08:17)
[2019-11-25] MEDS: *HR* GlipiZIDE XL (24 HR) 10 MG TABLET PO SCH (08:17)
[2019-11-25] MEDS: Budesonide/Formoterol 160/4.5 1 PUFF INH IH SCH ×2 (10:20→21:57)
[2019-11-25] MEDS: polyethylene glycoL 3350 17 GM POWD.PACK PO SCH (13:35)
[2019-11-26] MEDS: *HR* Enoxaparin 30 MG/0.3 ML SYRINGE SQ SCH (06:11)
[2019-11-26] MEDS: polyethylene glycoL 3350 17 GM POWD.PACK PO SCH (09:06)
[2019-11-26] MEDS: Sennosides 8.6 MG TABLET PO SCH ×2 (09:06→19:30)
[2019-11-26] MEDS: hydrALAZINE 25 MG TABLET PO SCH ×3 (09:06→19:47)
[2019-11-26] MEDS: Doxycycline 100 MG CAPSULE PO SCH ×2 (09:06→19:47)
[2019-11-26] MEDS: Cholecalciferol (D-3) 1,000 UNIT (25MCG) TABLET PO SCH (09:06)
[2019-11-26] MEDS: carvediloL 25 MG TABLET PO SCH ×2 (09:06→16:10)
[2019-11-26] MEDS: cloNIDine HCL 0.1 MG TABLET PO SCH ×2 (09:07→19:47)
[2019-11-26] MEDS: allopurinoL 100 MG TABLET PO SCH (09:07)
[2019-11-26] MEDS: Aspirin Enteric Coated 81 MG Tablet PO SCH (09:07)
[2019-11-26] MEDS: *HR* GlipiZIDE XL (24 HR) 10 MG TABLET PO SCH (09:07)
[2019-11-26] MEDS: amLODIPine 5 MG TABLET PO SCH (09:07)
[2019-11-26] MEDS: Furosemide 20 MG TABLET PO SCH (09:07)
[2019-11-26] MEDS: Isosorbide MONOnitrate (24 HR) 60 MG TAB.ER.24H PO SCH (09:07)
[2019-11-26] MEDS: Budesonide/Formoterol 160/4.5 1 PUFF INH IH SCH ×2 (10:29→21:56)
[2019-11-26 11:55] LABS: Basophils % 0.7 %; Eosinophils # 0.2 K/mcL (0.0-0.6); Eosinophils % 4.4 %; Hematocrit 26.9 % (35.3-44.9); Hemoglobin 8.7 g/dL (11.5-15.4); Lymphocytes # 0.4 K/mcL (0.6-4.6); Lymphocytes % 9.9 %; Mean Corpuscular HGB Conc 32.3 g/dL (31.6-35.5); Mean Corpuscular Hemoglobin 35.7 pg (28.0-33.3); Mean Corpuscular Volume 110.2 fL (83.0-100.0); Monocytes # 0.4 K/mcL (0.0-1.3); Monocytes % 9.4 %; Red Blood Count 2.44 M/mcL (3.82-4.97); Red Cell Distribution Width 19.3 % (11.5-14.5); Segmented Neutrophils % 74.6 %; White Blood Count 4.1 K/mcL (4.3-11.1)
[2019-11-26 12:17] LABS: Neutrophils # 3.1 K/mcL (1.6-8.9); Platelet Count 76 K/mcL (140-400)
[2019-11-26 13:07] LABS: Calcium 9.4 mg/dL (8.6-10.3)
[2019-11-26 13:24] LABS: Microcytosis Present (Not Present)
[2019-11-26 13:25] LABS: Platelet Estimate Slight Decrease (Normal)
[2019-11-27] MEDS: *HR* Enoxaparin 30 MG/0.3 ML SYRINGE SQ SCH (05:08)
[2019-11-27] MEDS: Budesonide/Formoterol 160/4.5 1 PUFF INH IH SCH ×2 (07:34→22:58)
[2019-11-27] MEDS: Furosemide 20 MG TABLET PO SCH (09:12)
[2019-11-27] MEDS: cloNIDine HCL 0.1 MG TABLET PO SCH ×2 (09:13→22:57)
[2019-11-27] MEDS: amLODIPine 5 MG TABLET PO SCH (09:13)
[2019-11-27] MEDS: hydrALAZINE 25 MG TABLET PO SCH ×3 (09:13→22:53)
[2019-11-27] MEDS: allopurinoL 100 MG TABLET PO SCH (09:13)
[2019-11-27] MEDS: Cholecalciferol (D-3) 1,000 UNIT (25MCG) TABLET PO SCH (09:13)
[2019-11-27] MEDS: *HR* GlipiZIDE XL (24 HR) 10 MG TABLET PO SCH (09:13)
[2019-11-27] MEDS: Isosorbide MONOnitrate (24 HR) 60 MG TAB.ER.24H PO SCH (09:13)
[2019-11-27] MEDS: Aspirin Enteric Coated 81 MG Tablet PO SCH (09:13)
[2019-11-27] MEDS: carvediloL 25 MG TABLET PO SCH ×2 (09:14→18:26)
[2019-11-27] MEDS: Sennosides 8.6 MG TABLET PO SCH ×2 (09:14→22:56)
[2019-11-27] MEDS: polyethylene glycoL 3350 17 GM POWD.PACK PO SCH (09:14)
[2019-11-28] MEDS: *HR* Enoxaparin 30 MG/0.3 ML SYRINGE SQ SCH (06:53)
[2019-11-28] MEDS: Aspirin Enteric Coated 81 MG Tablet PO SCH (09:26)
[2019-11-28] MEDS: amLODIPine 5 MG TABLET PO SCH (09:26)
[2019-11-28] MEDS: Isosorbide MONOnitrate (24 HR) 60 MG TAB.ER.24H PO SCH (09:26)
[2019-11-28] MEDS: Sennosides 8.6 MG TABLET PO SCH ×2 (09:26→23:21)
[2019-11-28] MEDS: carvediloL 25 MG TABLET PO SCH ×2 (09:26→15:34)
[2019-11-28] MEDS: *HR* GlipiZIDE XL (24 HR) 10 MG TABLET PO SCH (09:26)
[2019-11-28] MEDS: hydrALAZINE 25 MG TABLET PO SCH ×3 (09:26→23:20)
[2019-11-28] MEDS: cloNIDine HCL 0.1 MG TABLET PO SCH ×2 (09:27→23:20)
[2019-11-28] MEDS: allopurinoL 100 MG TABLET PO SCH (09:27)
[2019-11-28] MEDS: polyethylene glycoL 3350 17 GM POWD.PACK PO SCH (09:27)
[2019-11-28] MEDS: Furosemide 20 MG TABLET PO SCH (09:27)
[2019-11-28] MEDS: Cholecalciferol (D-3) 1,000 UNIT (25MCG) TABLET PO SCH (09:27)
[2019-11-28] MEDS: Budesonide/Formoterol 160/4.5 1 PUFF INH IH SCH ×2 (10:27→21:35)
[2019-11-28 19:52] LABS: Basophils % 0.5 %; Eosinophils # 0.2 K/mcL (0.0-0.6); Eosinophils % 10.5 %; Hematocrit 24.1 % (35.3-44.9); Hemoglobin 7.8 g/dL (11.5-15.4); Lymphocytes # 0.7 K/mcL (0.6-4.6); Lymphocytes % 36.5 %; Mean Corpuscular HGB Conc 32.4 g/dL (31.6-35.5); Mean Corpuscular Hemoglobin 36.1 pg (28.0-33.3); Mean Corpuscular Volume 111.6 fL (83.0-100.0); Mean Platelet Volume 13.4 fL (9.4-12.4); Monocytes # 0.2 K/mcL (0.0-1.3); Neutrophils # 0.8 K/mcL (1.6-8.9); Red Blood Count 2.16 M/mcL (3.82-4.97); Red Cell Distribution Width 18.9 % (11.5-14.5); Segmented Neutrophils % 40.5 %
[2019-11-28 19:54] LABS: Platelet Count 65 K/mcL (140-400)
[2019-11-28 20:06] LABS: Calcium 8.6 mg/dL (8.6-10.3); Potassium 4.1 mEq/L (3.5-5.1)
[2019-11-29] MEDS ORDERED: 0.9 % Sodium Chloride 500 ML ONE (01:32)
[2019-11-29 07:13] LABS: Basophils % 0.5 %; Eosinophils # 0.2 K/mcL (0.0-0.6); Eosinophils % 9.2 %; Hematocrit 27.4 % (35.3-44.9); Immature Granulocytes % 0.9 % (0-4); Lymphocytes # 0.8 K/mcL (0.6-4.6); Lymphocytes % 35.8 %; Mean Corpuscular HGB Conc 32.8 g/dL (31.6-35.5); Mean Corpuscular Hemoglobin 35.6 pg (28.0-33.3); Mean Corpuscular Volume 108.3 fL (83.0-100.0); Monocytes # 0.3 K/mcL (0.0-1.3); Monocytes % 11.5 %; Neutrophils # 0.9 K/mcL (1.6-8.9); Red Blood Count 2.53 M/mcL (3.82-4.97); Red Cell Distribution Width 18.9 % (11.5-14.5); Segmented Neutrophils % 42.1 %; White Blood Count 2.2 K/mcL (4.3-11.1)
[2019-11-29 07:19] LABS: Platelet Count 62 K/mcL (140-400)
[2019-11-29 07:24] LABS: Anisocytosis 1+ (Not Present); Macrocytosis Present (Not Present); Microcytosis Present (Not Present); Platelet Estimate Marked Decrease (Normal)
[2019-11-29 07:32] LABS: Calcium 8.6 mg/dL (8.6-10.3)
[2019-11-29] MEDS: *HR* Enoxaparin 30 MG/0.3 ML SYRINGE SQ SCH (07:44)
[2019-11-29] MEDS: Budesonide/Formoterol 160/4.5 1 PUFF INH IH SCH ×2 (08:16→20:41)
[2019-11-29] MEDS: hydrALAZINE 25 MG TABLET PO SCH ×3 (09:08→20:23)
[2019-11-29] MEDS: amLODIPine 5 MG TABLET PO SCH (09:08)
[2019-11-29] MEDS: *HR* GlipiZIDE XL (24 HR) 10 MG TABLET PO SCH (09:09)
[2019-11-29] MEDS: Isosorbide MONOnitrate (24 HR) 60 MG TAB.ER.24H PO SCH (09:09)
[2019-11-29] MEDS: Cholecalciferol (D-3) 1,000 UNIT (25MCG) TABLET PO SCH (09:09)
[2019-11-29] MEDS: Sennosides 8.6 MG TABLET PO SCH ×2 (09:09→20:24)
[2019-11-29] MEDS: cloNIDine HCL 0.1 MG TABLET PO SCH ×2 (09:09→20:24)
[2019-11-29] MEDS: Furosemide 20 MG TABLET PO SCH (09:09)
[2019-11-29] MEDS: carvediloL 25 MG TABLET PO SCH ×2 (09:09→17:39)
[2019-11-29] MEDS: allopurinoL 100 MG TABLET PO SCH (09:09)
[2019-11-29] MEDS: Aspirin Enteric Coated 81 MG Tablet PO SCH (09:09)
[2019-11-29] MEDS: polyethylene glycoL 3350 17 GM POWD.PACK PO SCH (09:10)
[2019-11-30 05:28] LABS: Hematocrit 25.9 % (35.3-44.9); Hemoglobin 8.5 g/dL (11.5-15.4)
[2019-11-30] MEDS: *HR* Enoxaparin 30 MG/0.3 ML SYRINGE SQ SCH (05:40)
[2019-11-30] MEDS: allopurinoL 100 MG TABLET PO SCH (08:02)
[2019-11-30] MEDS: Aspirin Enteric Coated 81 MG Tablet PO SCH (08:02)
[2019-11-30] MEDS: *HR* GlipiZIDE XL (24 HR) 10 MG TABLET PO SCH (08:02)
[2019-11-30] MEDS: Cholecalciferol (D-3) 1,000 UNIT (25MCG) TABLET PO SCH (08:02)
[2019-11-30] MEDS: Sennosides 8.6 MG TABLET PO SCH ×2 (08:02→20:14)
[2019-11-30] MEDS: hydrALAZINE 25 MG TABLET PO SCH ×3 (08:02→20:15)
[2019-11-30] MEDS: amLODIPine 5 MG TABLET PO SCH (08:02)
[2019-11-30] MEDS: carvediloL 25 MG TABLET PO SCH ×2 (08:02→16:28)
[2019-11-30] MEDS: cloNIDine HCL 0.1 MG TABLET PO SCH ×2 (08:03→20:14)
[2019-11-30] MEDS: Isosorbide MONOnitrate (24 HR) 60 MG TAB.ER.24H PO SCH (08:03)
[2019-11-30] MEDS: Furosemide 20 MG TABLET PO SCH (08:03)
[2019-11-30] MEDS: polyethylene glycoL 3350 17 GM POWD.PACK PO SCH (08:03)
[2019-11-30] MEDS: Budesonide/Formoterol 160/4.5 1 PUFF INH IH SCH ×2 (09:51→21:03)
[2019-11-30] MEDS ORDERED: Dextrose Gel 15 GM/37.5 ML TUBE PO PRN ×2 (23:56)
[2019-11-30] MEDS ORDERED: D5% in Water 1,000 ML IVC PRN (23:56)
[2019-11-30] MEDS ORDERED: *HR* Dextrose 50 % in Water (Vial) 50 ML VIAL IVP PRN (23:56)
[2019-12-01] MEDS: *HR* Enoxaparin 30 MG/0.3 ML SYRINGE SQ SCH (04:23)
[2019-12-01 05:33] LABS: Albumin/Globulin Ratio 1.4 (1.1-2.2); Bilirubin,Total 0.6 mg/dL (0.3-1.0); Calcium 8.8 mg/dL (8.6-10.3); Globulin 2.2 g/dL (2.4-3.5); Potassium 3.7 mEq/L (3.5-5.1); Total Protein 5.2 g/dL (6.4-8.9)
[2019-12-01 07:49] VITALS: BP 150/61
[2019-12-01] MEDS ORDERED: *HR* GlipiZIDE XL (24 HR) 2.5 MG TABLET PO SCH (08:00)
[2019-12-01] MEDS: Isosorbide MONOnitrate (24 HR) 60 MG TAB.ER.24H PO SCH (09:18)
[2019-12-01] MEDS: Furosemide 20 MG TABLET PO SCH (09:18)
[2019-12-01] MEDS: cloNIDine HCL 0.1 MG TABLET PO SCH (09:18)
[2019-12-01] MEDS: allopurinoL 100 MG TABLET PO SCH (09:18)
[2019-12-01] MEDS: Aspirin Enteric Coated 81 MG Tablet PO SCH (09:18)
[2019-12-01] MEDS: hydrALAZINE 25 MG TABLET PO SCH (09:18)
[2019-12-01] MEDS: Cholecalciferol (D-3) 1,000 UNIT (25MCG) TABLET PO SCH (09:18)
[2019-12-01] MEDS: amLODIPine 5 MG TABLET PO SCH (09:19)
[2019-12-01] MEDS: polyethylene glycoL 3350 17 GM POWD.PACK PO SCH (09:19)
[2019-12-01] MEDS: Sennosides 8.6 MG TABLET PO SCH (09:19)
[2019-12-01] MEDS: carvediloL 25 MG TABLET PO SCH (09:19)
[2019-12-01] MEDS: Budesonide/Formoterol 160/4.5 1 PUFF INH IH SCH (10:27)
== END 2019-12-01 15:15 | disposition home health service (06) | DRG 945 ==
LOC: INPGRE 23:20
PROVIDERS: ADMIT Family Medicine; ATTEND Family Medicine

== ENCOUNTER 2019-12-02 02:52 | Observation (INO) ==
[2019-12-02] MEDS ORDERED: D5% in 0.9% NACL 1,000 ML IVC SCH ×2 (03:15→06:06)
[2019-12-02] MEDS ORDERED: Ipratropium/Albuterol Neb 3 ML IH ONE (03:21)
[2019-12-02] MEDS ORDERED: methylPREDNISolone 125 MG/2 ML VIAL IVP ONE (03:21)
[2019-12-02 03:40] LABS: Basophils % 0.3 %; Eosinophils # 0.1 K/mcL (0.0-0.6); Eosinophils % 1.7 %; Hematocrit 28.3 % (35.3-44.9); Hemoglobin 9.3 g/dL (11.5-15.4); Immature Granulocytes % 0.8 % (0-4); Lymphocytes # 0.5 K/mcL (0.6-4.6); Mean Corpuscular HGB Conc 32.9 g/dL (31.6-35.5); Mean Corpuscular Hemoglobin 34.8 pg (28.0-33.3); Mean Platelet Volume 14.2 fL (9.4-12.4); Monocytes # 0.2 K/mcL (0.0-1.3); Monocytes % 6.4 %; Neutrophils # 2.8 K/mcL (1.6-8.9); Red Blood Count 2.67 M/mcL (3.82-4.97); Red Cell Distribution Width 18.6 % (11.5-14.5); Segmented Neutrophils % 76.8 %; White Blood Count 3.6 K/mcL (4.3-11.1)
[2019-12-02 03:41] LABS: Platelet Count 56 K/mcL (140-400)
[2019-12-02 03:46] LABS: INR 1.1; Prothrombin Time 12.6 Seconds (9.4-12.1)
[2019-12-02 03:46] LABS: VBG HCO3 29 mEq/L (21-27); VBG PCO2 43 mmHg (41-51); VBG PH 7.44 pH Units (7.32-7.42); VBG PO2 67 mmHg (25-50)
[2019-12-02 03:48] LABS: Activated Partial Thrombo Time 26.1 Seconds (26.0-36.0)
[2019-12-02 03:57] LABS: Alanine Aminotransferase 17 Units/L (7-52); Albumin 3.4 g/dL (3.5-5.7); Albumin/Globulin Ratio 1.4 (1.1-2.2); Alkaline Phosphatase 44 Units/L (34-104); Aspartate Amino Transferase 19 Units/L (13-39); BUN/Creatinine Ratio 24 (6-26); Bilirubin,Direct 0.2 mg/dL (0.0-0.2); Bilirubin,Indirect 0.5 mg/dL (0.0-1.0); Bilirubin,Total 0.7 mg/dL (0.3-1.0); Blood Urea Nitrogen 40 mg/dL (8-23); Calcium 8.9 mg/dL (8.6-10.3); Carbon Dioxide 30 mEq/L (23-29); Chloride 96 mEq/L (98-107); Creatine Kinase 22 Units/L (30-223); Globulin 2.4 g/dL (2.4-3.5); Glucose 146 mg/dL (70-105); Osmolality,Calculated 290 (280-300); Sodium 134 mEq/L (136-145); Total Protein 5.8 g/dL (6.4-8.9); Troponin I < 0.03 ng/mL (< 0.04); eGFR For African Americans 35 (> 60); eGFR For Non-African Americans 29 (> 60)
[2019-12-02 04:12] LABS: Thyroid Stimulating Hormone 1.638 mcIU/mL (0.340-5.600)
[2019-12-02] MEDS ORDERED: Furosemide 40 MG/4 ML VIAL IVP ONE (04:18)
[2019-12-02] MEDS ORDERED: *HR* Enoxaparin 30 MG/0.3 ML SYRINGE SQ SCH (06:00)
[2019-12-02] MEDS ORDERED: Naloxone 0.4 MG/ML INJ IVP PRN (06:06)
[2019-12-02] MEDS: cloNIDine HCL 0.1 MG TABLET PO SCH ×2 (09:19→22:43)
[2019-12-02] MEDS: Sennosides 8.6 MG TABLET PO SCH ×2 (09:19→22:44)
[2019-12-02] MEDS: Aspirin Enteric Coated 81 MG Tablet PO SCH (09:19)
[2019-12-02] MEDS: allopurinoL 100 MG TABLET PO SCH (09:19)
[2019-12-02] MEDS: hydrALAZINE 25 MG TABLET PO SCH ×3 (09:19→22:43)
[2019-12-02] MEDS: Cholecalciferol (D-3) 1,000 UNIT (25MCG) TABLET PO SCH (09:19)
[2019-12-02] MEDS: Furosemide 40 MG TABLET PO SCH (09:20)
[2019-12-02] MEDS: amLODIPine 5 MG TABLET PO SCH (09:20)
[2019-12-02] MEDS: Isosorbide MONOnitrate (24 HR) 60 MG TAB.ER.24H PO SCH (09:20)
[2019-12-02] MEDS: *HR* Enoxaparin 30 MG/0.3 ML SYRINGE SQ SCH (09:23)
[2019-12-02] MEDS: carvediloL 25 MG TABLET PO SCH ×2 (09:40→17:50)
[2019-12-02] MEDS: Budesonide/Formoterol 160/4.5 1 PUFF INH IH SCH ×2 (10:26→22:43)
[2019-12-02] MEDS: *HR* HYDROcodone/Acet 5/325 mg TABLET PO PRN ×2 (13:33→22:44)
[2019-12-02] MEDS ORDERED: Insulin LISPRO 300 UNITS/3 ML VIAL SQ SCH (21:00)
[2019-12-03] MEDS ORDERED: Insulin LISPRO 300 UNITS/3 ML VIAL SQ STA
[2019-12-03] MEDS: Budesonide/Formoterol 160/4.5 1 PUFF INH IH SCH (07:10)
[2019-12-03] MEDS: *HR* Enoxaparin 30 MG/0.3 ML SYRINGE SQ SCH (09:59)
[2019-12-03] MEDS: Furosemide 40 MG TABLET PO SCH (10:00)
[2019-12-03] MEDS: carvediloL 25 MG TABLET PO SCH (10:00)
[2019-12-03] MEDS: Isosorbide MONOnitrate (24 HR) 60 MG TAB.ER.24H PO SCH (10:00)
[2019-12-03] MEDS: Aspirin Enteric Coated 81 MG Tablet PO SCH (10:00)
[2019-12-03] MEDS: amLODIPine 5 MG TABLET PO SCH (10:00)
[2019-12-03] MEDS: Sennosides 8.6 MG TABLET PO SCH (10:00)
[2019-12-03] MEDS: hydrALAZINE 25 MG TABLET PO SCH (10:00)
[2019-12-03] MEDS: allopurinoL 100 MG TABLET PO SCH (10:00)
[2019-12-03] MEDS: Cholecalciferol (D-3) 1,000 UNIT (25MCG) TABLET PO SCH (10:00)
[2019-12-03] MEDS: cloNIDine HCL 0.1 MG TABLET PO SCH (10:00)
[2019-12-03 12:28] VITALS: BP 144/64
== END 2019-12-03 14:27 | disposition home health service (06) ==
LOC: INPGRE 02:52 → EMEROOGRE 02:52 → INPGRE 05:57
PROVIDERS: ADMIT Family Medicine; ATTEND Family Medicine

== ENCOUNTER 2020-07-18 12:30 | Inpatient (IN) ==
[2020-07-18] MEDS ORDERED: Pantoprazole 40 MG VIAL IVP ONE (13:00)
[2020-07-18] MEDS ORDERED: 0.9 % Sodium Chloride 500 ML IVC ONE (13:00)
[2020-07-18 13:20] LABS: Basophils % 0.3 %; Eosinophils # 0.1 K/mcL (0.0-0.6); Eosinophils % 2.6 %; Hematocrit 20.9 % (35.3-44.9); Hemoglobin 6.5 g/dL (11.5-15.4); Immature Granulocytes % 11.4 % (0-4); Lymphocytes # 0.8 K/mcL (0.6-4.6); Lymphocytes % 26.1 %; Mean Corpuscular HGB Conc 31.1 g/dL (31.6-35.5); Mean Corpuscular Hemoglobin 35.9 pg (28.0-33.3); Mean Corpuscular Volume 115.5 fL (83.0-100.0); Mean Platelet Volume 12.2 fL (9.4-12.4); Monocytes # 0.2 K/mcL (0.0-1.3); Monocytes % 7.8 %; Neutrophils # 1.6 K/mcL (1.6-8.9); Platelet Count 73 K/mcL (140-400); Red Blood Count 1.81 M/mcL (3.82-4.97); Red Cell Distribution Width 22.7 % (11.5-14.5); Segmented Neutrophils % 51.8 %; White Blood Count 3.1 K/mcL (4.3-11.1)
[2020-07-18 13:25] LABS: INR 1.2; Prothrombin Time 14.3 Seconds (9.4-12.1)
[2020-07-18 13:28] LABS: Activated Partial Thrombo Time 27.7 Seconds (26.0-36.0)
[2020-07-18 13:34] LABS: Albumin 3.1 g/dL (3.5-5.7); Albumin/Globulin Ratio 1.1 (1.1-2.2); Bilirubin,Direct 0.2 mg/dL (0.0-0.2); Bilirubin,Indirect 0.6 mg/dL (0.0-1.0); Bilirubin,Total 0.8 mg/dL (0.3-1.0); Calcium 9.2 mg/dL (8.6-10.3); Globulin 2.9 g/dL (2.4-3.5); Potassium 4.6 mEq/L (3.5-5.1)
[2020-07-18 13:34] LABS: VBG HCO3 31 mEq/L (21-27); VBG PCO2 52 mmHg (41-51); VBG PH 7.39 pH Units (7.32-7.42); VBG PO2 38 mmHg (25-50)
[2020-07-18 13:37] LABS: Troponin I 0.03 ng/mL (< 0.04)
[2020-07-18] MEDS ORDERED: Azithromycin 500 MG in 0.9 % Sodium Chloride 250 ML IVPB ONE (13:44)
[2020-07-18] MEDS ORDERED: Furosemide 40 MG/4 ML VIAL IVP ONE (13:51)
[2020-07-18] MEDS ORDERED: levoFLOXacin 500 MG/100 ML 500 MG/100 ML BAG IVPB ONE (14:26)
[2020-07-18] MEDS ORDERED: 0.9 % Sodium Chloride 250 ML ONE (15:36)
[2020-07-18] MEDS ORDERED: Naloxone 0.4 MG/ML INJ IVP PRN (17:00)
[2020-07-18] MEDS ORDERED: Nitroglycerin 1 INCH/GM PACKET TP ONE (17:00)
[2020-07-18] MEDS ORDERED: *HR* OxyCODONE Immed Rel 5 MG TABLET PO PRN (17:00)
[2020-07-18] MEDS ORDERED: Aspirin 81 MG TAB.CHEW PO ONE (17:00)
[2020-07-18] MEDS ORDERED: Sennosides 8.6 MG TABLET PO PRN (17:00)
[2020-07-18] MEDS ORDERED: *HR* Dextrose 50 % in Water (Vial) 50 ML VIAL IVP PRN (17:36)
[2020-07-18] MEDS ORDERED: Dextrose Gel 15 GM/37.5 ML TUBE PO PRN ×2 (17:36)
[2020-07-18] MEDS ORDERED: D5% in Water 1,000 ML IVC PRN (17:36)
[2020-07-18] MEDS: Isosorbide MONOnitrate (24 HR) 60 MG TAB.ER.24H PO SCH (18:44)
[2020-07-18] MEDS: Insulin LISPRO 300 UNITS/3 ML VIAL SUBQ SCH ×2 (18:49→21:35)
[2020-07-18] MEDS: carvediloL 25 MG TABLET PO SCH (19:44)
[2020-07-18] MEDS: Aspirin 81 MG TAB.CHEW PO SCH (19:44)
[2020-07-18 19:47] LABS: Hematocrit 23.9 % (35.3-44.9); Hemoglobin 7.7 g/dL (11.5-15.4)
[2020-07-19] MEDS: Budesonide/Formoterol 160/4.5 1 PUFF INH IH SCH ×3 (00:09→20:41)
[2020-07-19 01:29] LABS: Bilirubin,Urine Negative (Negative); Blood,Urine Trace-intact (Negative); Clarity,Urine Slightly Cloudy (Clear); Glucose,Urine (UA) Normal (Normal); Ketones,Urine Negative (Negative); Leukocyte Esterase,Urine Small (Negative); Nitrite,Urine Negative (Negative); PH,Urine 5.5 pH Units (5.0-8.0); Protein,Urine Negative (Neg-Trace); Urobilinogen,Urine Normal (Normal)
[2020-07-19 01:30] LABS: Color,Urine Yellow (Yellow); RBC,Urine 0-3 per hpf (0-3)
[2020-07-19 01:31] LABS: Bacteria,Urine Few per hpf (None-Few); Squamous Epithelial Cell,Urine Few per hpf (None-Few)
[2020-07-19 02:04] LABS: Basophils % 0.7 %; Eosinophils # 0.1 K/mcL (0.0-0.6); Eosinophils % 2.7 %; Hematocrit 24.1 % (35.3-44.9); Hemoglobin 7.7 g/dL (11.5-15.4); Immature Granulocytes % 6.6 % (0-4); Mean Corpuscular Hemoglobin 34.5 pg (28.0-33.3); Monocytes # 0.3 K/mcL (0.0-1.3); Monocytes % 7.5 %; Neutrophils # 2.4 K/mcL (1.6-8.9); Red Blood Count 2.23 M/mcL (3.82-4.97); Segmented Neutrophils % 57.5 %; White Blood Count 4.1 K/mcL (4.3-11.1)
[2020-07-19 02:09] LABS: Platelet Count 80 K/mcL (140-400)
[2020-07-19 02:10] LABS: Mean Corpuscular Volume 108.1 fL (83.0-100.0)
[2020-07-19 02:12] LABS: Platelet Estimate Decreased (Normal)
[2020-07-19 03:09] LABS: Calcium 9.2 mg/dL (8.6-10.3); Potassium 4.3 mEq/L (3.5-5.1)
[2020-07-19] MEDS ORDERED: *HR* Enoxaparin 30 MG/0.3 ML SYRINGE SQ SCH (06:00)
[2020-07-19] MEDS: Aspirin 81 MG TAB.CHEW PO SCH (08:52)
[2020-07-19] MEDS: Furosemide 40 MG TABLET PO SCH (08:53)
[2020-07-19] MEDS: Cholecalciferol (D-3) 1,000 UNIT (25MCG) TABLET PO SCH (08:53)
[2020-07-19] MEDS: allopurinoL 100 MG TABLET PO SCH (08:53)
[2020-07-19] MEDS: Isosorbide MONOnitrate (24 HR) 60 MG TAB.ER.24H PO SCH (08:54)
[2020-07-19] MEDS: Insulin LISPRO 300 UNITS/3 ML VIAL SUBQ SCH ×4 (08:56→21:31)
[2020-07-19] MEDS ORDERED: Aspirin 81 MG TAB.CHEW PO SCH (09:00)
[2020-07-19] MEDS: carvediloL 25 MG TABLET PO SCH ×2 (09:00→17:06)
[2020-07-19] MEDS: levoFLOXacin 500 MG/100 ML 500 MG/100 ML BAG IVPB SCH (17:09)
[2020-07-20 05:26] LABS: Basophils % 0.5 %; Eosinophils # 0.1 K/mcL (0.0-0.6); Eosinophils % 2.2 %; Hematocrit 23.3 % (35.3-44.9); Hemoglobin 7.5 g/dL (11.5-15.4); Immature Granulocytes % 9.8 % (0-4); Lymphocytes # 0.9 K/mcL (0.6-4.6); Lymphocytes % 24.5 %; Mean Corpuscular HGB Conc 32.2 g/dL (31.6-35.5); Mean Corpuscular Hemoglobin 34.6 pg (28.0-33.3); Mean Corpuscular Volume 107.4 fL (83.0-100.0); Mean Platelet Volume 13.7 fL (9.4-12.4); Monocytes # 0.3 K/mcL (0.0-1.3); Monocytes % 9.2 %; Red Blood Count 2.17 M/mcL (3.82-4.97); Segmented Neutrophils % 53.8 %; White Blood Count 3.7 K/mcL (4.3-11.1)
[2020-07-20 05:27] LABS: Platelet Count 73 K/mcL (140-400)
[2020-07-20 05:43] LABS: Calcium 9.2 mg/dL (8.6-10.3); Potassium 4.1 mEq/L (3.5-5.1)
[2020-07-20] MEDS: carvediloL 25 MG TABLET PO SCH ×2 (08:40→18:22)
[2020-07-20] MEDS: allopurinoL 100 MG TABLET PO SCH (08:41)
[2020-07-20] MEDS: Aspirin 81 MG TAB.CHEW PO SCH (08:41)
[2020-07-20] MEDS: Cholecalciferol (D-3) 1,000 UNIT (25MCG) TABLET PO SCH (08:41)
[2020-07-20] MEDS: Isosorbide MONOnitrate (24 HR) 60 MG TAB.ER.24H PO SCH (08:41)
[2020-07-20] MEDS: Insulin LISPRO 300 UNITS/3 ML VIAL SUBQ SCH ×4 (08:42→21:39)
[2020-07-20] MEDS: Furosemide 40 MG TABLET PO SCH (09:55)
[2020-07-20] MEDS: Budesonide/Formoterol 160/4.5 1 PUFF INH IH SCH ×2 (09:55→21:35)
[2020-07-20] MEDS: levoFLOXacin 500 MG/100 ML 500 MG/100 ML BAG IVPB SCH (10:10)
[2020-07-20] MEDS ORDERED: 0.9 % Sodium Chloride 250 ML ONE (17:54)
[2020-07-21] MEDS: Insulin LISPRO 300 UNITS/3 ML VIAL SUBQ SCH ×4 (09:54→20:36)
[2020-07-21] MEDS: carvediloL 25 MG TABLET PO SCH ×2 (09:55→16:48)
[2020-07-21] MEDS: allopurinoL 100 MG TABLET PO SCH (09:55)
[2020-07-21] MEDS: Isosorbide MONOnitrate (24 HR) 60 MG TAB.ER.24H PO SCH (09:55)
[2020-07-21] MEDS: Aspirin 81 MG TAB.CHEW PO SCH (09:55)
[2020-07-21] MEDS: Cholecalciferol (D-3) 1,000 UNIT (25MCG) TABLET PO SCH (09:56)
[2020-07-21] MEDS: Furosemide 40 MG TABLET PO SCH (09:56)
[2020-07-21] MEDS: Budesonide/Formoterol 160/4.5 1 PUFF INH IH SCH ×2 (10:37→21:23)
[2020-07-21 12:30] LABS: Basophils % 0.7 %; Eosinophils # 0.1 K/mcL (0.0-0.6); Hematocrit 27.5 % (35.3-44.9); Hemoglobin 8.7 g/dL (11.5-15.4); Immature Granulocytes % 4.5 % (0-4); Lymphocytes # 0.7 K/mcL (0.6-4.6); Lymphocytes % 24.7 %; Mean Corpuscular HGB Conc 31.6 g/dL (31.6-35.5); Mean Corpuscular Volume 107.4 fL (83.0-100.0); Mean Platelet Volume 13.7 fL (9.4-12.4); Monocytes # 0.2 K/mcL (0.0-1.3); Monocytes % 6.7 %; Neutrophils # 1.6 K/mcL (1.6-8.9); Red Blood Count 2.56 M/mcL (3.82-4.97); Red Cell Distribution Width 23.6 % (11.5-14.5); Segmented Neutrophils % 60.4 %; White Blood Count 2.7 K/mcL (4.3-11.1)
[2020-07-21 12:31] LABS: Platelet Count 73 K/mcL (140-400)
[2020-07-21 15:02] LABS: Calcium 9.1 mg/dL (8.6-10.3); Potassium 4.2 mEq/L (3.5-5.1)
[2020-07-22 05:58] LABS: Basophils % 0.6 %; Eosinophils # 0.1 K/mcL (0.0-0.6); Eosinophils % 3.9 %; Hematocrit 28.6 % (35.3-44.9); Immature Granulocytes % 9.5 % (0-4); Lymphocytes # 0.8 K/mcL (0.6-4.6); Lymphocytes % 22.7 %; Mean Corpuscular HGB Conc 31.5 g/dL (31.6-35.5); Mean Corpuscular Hemoglobin 33.8 pg (28.0-33.3); Mean Corpuscular Volume 107.5 fL (83.0-100.0); Mean Platelet Volume 13.6 fL (9.4-12.4); Monocytes # 0.2 K/mcL (0.0-1.3); Monocytes % 6.7 %; Red Blood Count 2.66 M/mcL (3.82-4.97); Red Cell Distribution Width 22.9 % (11.5-14.5); Segmented Neutrophils % 56.6 %; White Blood Count 3.6 K/mcL (4.3-11.1)
[2020-07-22 06:13] LABS: Platelet Count 73 K/mcL (140-400)
[2020-07-22 06:16] LABS: Calcium 9.2 mg/dL (8.6-10.3); Potassium 4.2 mEq/L (3.5-5.1)
[2020-07-22] MEDS: Isosorbide MONOnitrate (24 HR) 60 MG TAB.ER.24H PO SCH (09:14)
[2020-07-22] MEDS: allopurinoL 100 MG TABLET PO SCH (09:14)
[2020-07-22] MEDS: Cholecalciferol (D-3) 1,000 UNIT (25MCG) TABLET PO SCH (09:14)
[2020-07-22] MEDS: carvediloL 25 MG TABLET PO SCH ×2 (09:14→17:57)
[2020-07-22] MEDS: Insulin LISPRO 300 UNITS/3 ML VIAL SUBQ SCH ×4 (09:15→19:54)
[2020-07-22] MEDS: Aspirin 81 MG TAB.CHEW PO SCH (09:15)
[2020-07-22] MEDS: Budesonide/Formoterol 160/4.5 1 PUFF INH IH SCH ×2 (09:24→22:20)
[2020-07-22] MEDS: Melatonin 3 MG TABLET PO PRN (19:55)
[2020-07-23 05:30] LABS: Basophils % 0.9 %; Eosinophils # 0.1 K/mcL (0.0-0.6); Eosinophils % 3.7 %; Hematocrit 26.7 % (35.3-44.9); Hemoglobin 8.5 g/dL (11.5-15.4); Immature Granulocytes % 3.7 % (0-4); Lymphocytes # 0.8 K/mcL (0.6-4.6); Lymphocytes % 23.4 %; Mean Corpuscular HGB Conc 31.8 g/dL (31.6-35.5); Mean Corpuscular Hemoglobin 34.7 pg (28.0-33.3); Monocytes # 0.2 K/mcL (0.0-1.3); Monocytes % 5.9 %; Red Blood Count 2.45 M/mcL (3.82-4.97); Red Cell Distribution Width 22.5 % (11.5-14.5); Segmented Neutrophils % 62.4 %; White Blood Count 3.2 K/mcL (4.3-11.1)
[2020-07-23 05:41] LABS: Platelet Count 79 K/mcL (140-400)
[2020-07-23 05:46] LABS: Platelet Estimate Decreased (Normal)
[2020-07-23 05:50] LABS: Calcium 9.2 mg/dL (8.6-10.3); Potassium 4.5 mEq/L (3.5-5.1)
[2020-07-23] MEDS: Aspirin 81 MG TAB.CHEW PO SCH (09:02)
[2020-07-23] MEDS: Furosemide 40 MG TABLET PO SCH (09:02)
[2020-07-23] MEDS: carvediloL 25 MG TABLET PO SCH ×2 (09:02→17:37)
[2020-07-23] MEDS: Insulin LISPRO 300 UNITS/3 ML VIAL SUBQ SCH ×4 (09:02→19:45)
[2020-07-23] MEDS: allopurinoL 100 MG TABLET PO SCH (09:03)
[2020-07-23] MEDS: Isosorbide MONOnitrate (24 HR) 60 MG TAB.ER.24H PO SCH (09:03)
[2020-07-23] MEDS: Cholecalciferol (D-3) 1,000 UNIT (25MCG) TABLET PO SCH (09:03)
[2020-07-23] MEDS: Budesonide/Formoterol 160/4.5 1 PUFF INH IH SCH ×2 (09:14→22:10)
[2020-07-23] MEDS: Melatonin 3 MG TABLET PO PRN (19:48)
[2020-07-24] MEDS: allopurinoL 100 MG TABLET PO SCH (08:14)
[2020-07-24] MEDS: Insulin LISPRO 300 UNITS/3 ML VIAL SUBQ SCH ×4 (08:14→20:07)
[2020-07-24] MEDS: Isosorbide MONOnitrate (24 HR) 60 MG TAB.ER.24H PO SCH (08:14)
[2020-07-24] MEDS: Cholecalciferol (D-3) 1,000 UNIT (25MCG) TABLET PO SCH (08:14)
[2020-07-24] MEDS: Furosemide 40 MG TABLET PO SCH (08:14)
[2020-07-24] MEDS: Aspirin 81 MG TAB.CHEW PO SCH (08:14)
[2020-07-24] MEDS: carvediloL 25 MG TABLET PO SCH ×2 (08:14→16:46)
[2020-07-24] MEDS: Budesonide/Formoterol 160/4.5 1 PUFF INH IH SCH ×2 (09:26→21:28)
[2020-07-24 15:53] LABS: Basophils % 0.8 %; Eosinophils # 0.1 K/mcL (0.0-0.6); Eosinophils % 3.6 %; Hematocrit 26.8 % (35.3-44.9); Hemoglobin 8.6 g/dL (11.5-15.4); Immature Granulocytes % 4.4 % (0-4); Lymphocytes # 0.8 K/mcL (0.6-4.6); Lymphocytes % 22.5 %; Mean Corpuscular HGB Conc 32.1 g/dL (31.6-35.5); Mean Corpuscular Hemoglobin 34.5 pg (28.0-33.3); Mean Corpuscular Volume 107.6 fL (83.0-100.0); Mean Platelet Volume 13.7 fL (9.4-12.4); Monocytes # 0.3 K/mcL (0.0-1.3); Monocytes % 8.2 %; Neutrophils # 2.2 K/mcL (1.6-8.9); Red Blood Count 2.49 M/mcL (3.82-4.97); Red Cell Distribution Width 22.4 % (11.5-14.5); Segmented Neutrophils % 60.5 %; White Blood Count 3.7 K/mcL (4.3-11.1)
[2020-07-24 16:20] LABS: Platelet Count 87 K/mcL (140-400)
[2020-07-24 16:24] LABS: Calcium 9.3 mg/dL (8.6-10.3); Potassium 3.9 mEq/L (3.5-5.1)
[2020-07-24] MEDS: Melatonin 3 MG TABLET PO PRN (19:34)
[2020-07-25] MEDS: Budesonide/Formoterol 160/4.5 1 PUFF INH IH SCH (07:36)
[2020-07-25] MEDS: Insulin LISPRO 300 UNITS/3 ML VIAL SUBQ SCH ×2 (08:45→13:20)
[2020-07-25] MEDS: Isosorbide MONOnitrate (24 HR) 60 MG TAB.ER.24H PO SCH (08:50)
[2020-07-25] MEDS: carvediloL 25 MG TABLET PO SCH (08:50)
[2020-07-25] MEDS: allopurinoL 100 MG TABLET PO SCH (08:50)
[2020-07-25] MEDS: Furosemide 40 MG TABLET PO SCH (08:50)
[2020-07-25] MEDS: Cholecalciferol (D-3) 1,000 UNIT (25MCG) TABLET PO SCH (08:50)
[2020-07-25] MEDS: Aspirin 81 MG TAB.CHEW PO SCH (08:50)
[2020-07-25 11:54] VITALS: BP 178/74
== END 2020-07-25 14:42 | disposition home health service (06) | DRG 808 ==
LOC: INPGRE 12:30 → EMEROOGRE 12:30 → INPGRE 16:30
PROVIDERS: ADMIT Family Medicine; ATTEND Family Medicine